=== PATIENT | male | born 1950 | race Caucasian/White ===

== ENCOUNTER → 2017-01-28 | Outpatient (CLI) | payer OTHER, MEDICAID | LOC: FIMAGING 16:00 | PROVIDERS: ATTEND Family Medicine | DX: J18.9 Pneumonia, unspecified organism (principal) ==

== ENCOUNTER 2017-02-16 22:40 | Inpatient (IN) | payer OTHER, MEDICAID ==
[2017-02-16] MEDS ORDERED: NS 500 ML IV ONE (22:45)
[2017-02-16] MEDS ORDERED: IPRATROPIUM/ALBUTEROL 3 ML DEYVIAL IH ONE (22:46)
--- NOTE | 2017-02-16 22:49 | EDPHY ---
H & P HPI/ROS: HPI CHIEF COMPLAINT: Seizure, generalized tonic-clonic 5 minutes HISTORY OF PRESENT ILLNESS: This patient is 66-year-old male significant past medical history for down syndrome, seizure disorder, presents emergency room by EMS after he had a witnessed generalized tonic-clonic seizure in his chair at home. He has a caregiver who witnessed the seizure. The patient does have a history of seizure disorder and take seizure medications according to EMS there has been changes in his seizure medication however they were unsure exactly what changed to one of his medications. His caregiver is able to give this information but is not here yet. Patient arrives is alert and oriented x3, answering questions appropriately he denies pain anywhere. EMS reports that he was postictal when they evaluated him and he had an O2 sat of 76% the placed on a non-rebreather and brought him here to the emergency room. Upon arrival here the patient has a cough and has upper airway secretions with a room air saturation of 85%. Past Medical History: Seizure disorder, down syndrome, thyroid disease Past Surgical History: No recent surgical history Social History: Denies daily use drugs alcohol tobacco products Family History: Noncontributory ROS REVIEW OF SYSTEMS: A comprehensive 10 point review of systems is otherwise negative aside from elements mentioned in the history of present illness. Exam Constitutional appears well nontoxic triage nursing summary reviewed, vital signs reviewed, awake/alert. (85%RA sat) Eyes normal conjunctivae and sclera, EOMI, PERRLA. HENT normal inspection, atraumatic, moist mucus membranes, no epistaxis, neck supple/ no meningismus, no raccoon eyes. Respiratory rhonchi in the upper airway and upper lung bernal Cardiovascular rate normal, regular rhythm, no murmur, no edema, distal pulses normal. Gastrointestinal soft, non-tender, no rebound, no guarding, normal bowel sounds, no distension, no pulsatile mass. Genitourinary no CVA tenderness. Musculoskeletal no midline vertebral tenderness, full range of motion, no calf swelling, no tenderness of extremities, no meningismus, good pulses, neurovascularly intact. Skin pink, warm, & dry, no rash, skin atraumatic. Neurologic awake, alert and oriented x 3, AAOx3, moves all 4 extremities equally, motor intact, sensory intact, CN II-XII intact, normal cerebellar, normal vision, normal speech. Psychiatric normal mood/affect. Heme/Lymph/Immune no lymphadenopathy. Differential Diagnosis: Includes but is not limited to in a particular order, breakthrough seizure, electrolyte disturbance, infection, pneumonia, aspiration from seizure, medication change leading to breakthrough seizure Medical Decision Making: Plan for this patient full regional director, IV establishment, blood draw, EKG, gentle IV hydration chest x-ray two view to rule out aspiration or recent pneumonia. Re-evaluation: 2315: At this time the caregiver has shown up and additional history is given. The caregiver tells me that he thinks he may have had a seizure was seated at the kitchen table and had a brief episode of unresponsiveness with staring off into space and some hand jerking. It is reported by the caregiver that he was not confused afterwards there was no postictal state. The caregiver thinks he may have passed out. He also reports that he has been dealing with bronchitis for 2 weeks and shortness of breath labored breathing at home. It was reported by EMS that he had a recent seizure medication change however the caregiver tells me that there has been no change in his medications. Also reports that there was no postictal state. EKG interpretation by me on record in [employer] system. Impression time of EKG 2308: This is sinus rhythm rate of 60, I do not appreciate acute ischemic changes on his EKG. And 1 I compare his EKG to old EKG dated 06/22/2009 is similar morphology. ED x-ray chest: Cardiomegaly present. Significant amount of pulmonary edema with bat winning appearance. 1222: At this time I did go and see the patient he still has mild labored breathing and rhonchi throughout all lung bernal. His workup here in the emergency room shows a positive troponin shows an elevated BNP shows an x-ray that is concerning for decompensated heart failure with cardiomegaly bilateral pulmonary edema. I have ordered this patient 40 mg IV Lasix, full-dose aspirin , he does not have chest pain. He is on a breathing treatment at this time. He is stable. He does have labored breathing. He will need to be admitted to PCU for decompensated heart failure. His CT angiogram at this time is pending for PE. This will also help us visualize his lung bernal as this could also be pneumonia with elevated white blood cell count however he does not have an elevated lactic acid. He did receive initially 500 cc of fluid normal saline when he arrived they have stopped all this fluid at this time. I spoke with Dr. Johnson the hospitalist who agrees to admit this patient. 1256AM: This patient's CT angiogram shows no pulmonary embolism however does show a dense right pneumonia. Blood cultures have been ordered. IV Rocephin azithromycin has been ordered. Source: Patient, EMS - Personal History Tetanus Vaccine Date: <10 years - Medical/Surgical History Other PMH: Down syndrome, hypothyroid - Social History Smoking Status: Never smoked Constitutional: Initial Vital Signs O2 Sat (%) 94 02/16/17 22:45 O2 Delivery Mode Oxymizer O2 (L/minute) 4 Allergies/Adverse Reactions: carbamazepine [From Tegretol] Allergy (Verified 02/16/17 22:59) NONFORM Allergy (Uncoded 08/28/12 09:55) OIL BASED PAINTS Allergy (Uncoded 08/28/12 09:55) Home Medications: Medication Instructions Recorded Flonase Nasal [place] 11/19/15 Ibuprofen [Motrin (*)] 600 mg PO Q8 #20 tab 11/19/15 Lamictal 11/19/15 Metamucil 11/19/15 Multivit with Calcium,Iron,Min 11/19/15 [place]-3 11/19/15 Prilosec 11/19/15 Stelazine 2MG (RX) 11/19/15 Synthroid 11/19/15 Wellbutrin 100mg (RX) 11/19/15 Medical Decision Making - Diagnostics Imaging Results: Imaging Impressions Chest X-Ray 02/16/17 22:45 Impression: Abnormalities as detailed above, congestive heart failure with possible associated pneumonia not excluded. Chest/Thorax CTA 02/16/17 23:32 Impression: 1. No evidence of pulmonary embolic disease. 2. Dense right lower lobe pulmonary consolidation is presumably pneumonia. Follow-up is recommended to assure resolution. 3. See above report for additional findings. Results called and discussed with Jose C Solorzano MD on 02/17/2017 at 0:40 - Data Points Laboratory Results: Laboratory Results 02/16/17 22:50 02/16/17 22:30 02/16/17 02/16/17 02/16/17 23:55 22:50 22:50 WBC 10.25 10^3/uL H 10^3/uL (3.80-9.50) RBC 3.45 10^6/uL L 10^6/uL (4.40-6.38) Hgb 11.8 g/dL L g/dL (13.7-17.5) Hct 35.0 % L % (40.0-51.0) MCV 101.4 fL H fL (81.5-99.8) MCH 34.2 pg H pg (27.9-34.1) MCHC 33.7 g/dL g/dL (32.4-36.7) RDW 14.9 % % (11.5-15.2) Plt Count 357 10^3/uL 10^3/uL (150-400) MPV 10.4 fL fL (8.7-11.7) Neut % (Auto) 74.5 % H % (39.3-74.2) Lymph % (Auto) 13.8 % L % (15.0-45.0) [place] % (Auto) 10.5 % % (4.5-13.0) Eos % (Auto) 0.0 % L % (0.6-7.6) Baso % (Auto) 0.7 % % (0.3-1.7) Nucleat RBC Rel Count 0.2 % % (0.0-0.2) Absolute Neuts (auto) 7.64 10^3/uL H 10^3/uL (1.70-6.50) Absolute Lymphs (auto) 1.41 10^3/uL 10^3/uL (1.00-3.00) Absolute Monos (auto) 1.08 10^3/uL H 10^3/uL (0.30-0.80) Absolute Eos (auto) 0.00 10^3/uL L 10^3/uL (0.03-0.40) Absolute Basos (auto) 0.07 10^3/uL 10^3/uL (0.02-0.10) Absolute Nucleated RBC 0.02 10^3/uL H 10^3/uL (0-0.01) Immature Gran % 0.5 % % (0.0-1.1) Immature Gran # 0.05 10^3/uL 10^3/uL (0.00-0.10) VBG Lactic Acid 1.2 mmol/L mmol/L (0.7-2.1) Sodium Potassium Chloride Carbon Dioxide Anion Gap BUN Creatinine Estimated GFR Glucose Calcium Magnesium Total Bilirubin Conjugated Bilirubin Unconjugated Bilirubin AST ALT Alkaline Phosphatase Creatine Kinase CK-MB (CK-2) Fraction Troponin I NT-Pro-B Natriuret Pep Total Protein Albumin Lipase Lamotrigine Pending 02/16/17 02/16/17 22:30 22:30 WBC REJ RBC TNP Hgb TNP Hct TNP MCV TNP MCH TNP MCHC TNP RDW TNP Plt Count TNP MPV TNP Neut % (Auto) TNP Lymph % (Auto) TNP [place] % (Auto) TNP Eos % (Auto) TNP Baso % (Auto) TNP Nucleat RBC Rel Count TNP Absolute Neuts (auto) TNP Absolute Lymphs (auto) TNP Absolute Monos (auto) TNP Absolute Eos (auto) TNP Absolute Basos (auto) TNP Absolute Nucleated RBC TNP Immature Gran % TNP Immature Gran # TNP VBG Lactic Acid Sodium 135 mEq/L mEq/L (134-144) Potassium 4.9 mEq/L mEq/L (3.5-5.2) Chloride 97 mEq/L mEq/L (97-110) Carbon Dioxide 26 mEq/l mEq/l (22-31) Anion Gap 12 mEq/L mEq/L (8-16) BUN 14 mg/dL mg/dL (7-23) Creatinine 1.0 mg/dL mg/dL (0.7-1.3) Estimated GFR > 60 Glucose 121 mg/dL H mg/dL (70-100) Calcium 8.6 mg/dL mg/dL (8.5-10.4) Magnesium 2.3 mg/dL mg/dL (1.6-2.3) Total Bilirubin 0.6 mg/dL mg/dL (0.1-1.4) Conjugated Bilirubin 0.5 mg/dL mg/dL (0.0-0.5) Unconjugated Bilirubin 0.1 mg/dL mg/dL (0.0-1.1) AST 34 IU/L IU/L (17-59) ALT 25 IU/L IU/L (21-72) Alkaline Phosphatase 92 IU/L IU/L (38-126) Creatine Kinase 70 IU/L IU/L (0-224) CK-MB (CK-2) Fraction 0.96 ng/mL ng/mL (0-3.19) Troponin I 0.047 ng/mL H ng/mL (0-0.034) NT-Pro-B Natriuret Pep 761 pg/mL H pg/mL (0-125) Total Protein 7.2 g/dL g/dL (6.3-8.2) Albumin 3.4 g/dL L g/dL (3.5-5.0) Lipase 48.0 IU/L IU/L (23-300) Lamotrigine Medications Given: Discontinued Medications Albuterol/Ipratropium (Duoneb) 3 ml IH EDNOW ONE Stop: 02/16/17 22:47 Last Admin: 02/16/17 23:05 Dose: 3 ml Aspirin Buffered (Aspirin Ec) 325 mg PO EDNOW ONE Stop: 02/16/17 23:34 Last Admin: 02/16/17 23:45 Dose: 325 mg Furosemide (Lasix Injection) 40 mg IVP EDNOW ONE Stop: 02/16/17 23:33 Last Admin: 02/16/17 23:45 Dose: 40 mg Sodium Chloride (Ns) 500 mls @ 0 mls/hr IV ONCE ONE PRN Reason: As Directed Stop: 02/16/17 22:46 Last Admin: 02/16/17 23:06 Dose: 500 mls Azithromycin 500 mg/ Dextrose 255 mls @ 255 mls/hr IV EDNOW ONE PRN Reason: Protocol Stop: 02/17/17 00:37 Last Admin: 02/17/17 00:45 Dose: 255 mls Ceftriaxone Sodium/Dextrose (Rocephin 1 Gm (Premix)) 50 mls @ 100 mls/hr IV EDNOW ONE PRN Reason: Protocol Stop: 02/17/17 00:07 Last Admin: 02/17/17 00:34 Dose: 50 mls Departure - Departure Disposition: Home, Routine, Self-Care Clinical Impression: Hypoxia CHF (congestive heart failure) Qualifiers: Congestive heart failure type: unspecified congestive heart failure type Congestive heart failure chronicity: acute Qualified Code(s): I50.9 - Heart failure, unspecified Pneumonia Qualifiers: Pneumonia type: due to unspecified organism Laterality: right Lung location: lower lobe of lung Qualified Code(s): J18.1 - Lobar pneumonia, unspecified organism Condition: Serious
[2017-02-16 22:58] LABS: % IMMATURE GRANULYOCYTES 0.5 % (0.0-1.1); ABSOLUTE IMMATURE GRANULOCYTES 0.05 10^3/uL (0.00-0.10); ABSOLUTE NRBC COUNT 0.02 10^3/uL (0-0.01); ADD DIFF? NO; ADD MORPH? NO; ADD SCAN? NO; ATYPICAL LYMPHOCYTE FLAG 50 (0-99); FRAGMENT RBC FLAG 0 (0-99); HEMOGLOBIN 11.8 g/dL (13.7-17.5); LEFT SHIFT FLG 10 (0-99); LIPEMIA HEMOLYSIS FLAG 80 (0-99); MEAN CELL HEMOGLOBIN 34.2 pg (27.9-34.1); MEAN CELL HEMOGLOBIN CONCENTR. 33.7 g/dL (32.4-36.7); MEAN CELL VOLUME 101.4 fL (81.5-99.8); MEAN PLATELET VOLUME 10.4 fL (8.7-11.7); NRBC-AUTO% 0.2 % (0.0-0.2); PLATELET CLUMPS FLAG 0 (0-99); PLATELET COUNT 357 10^3/uL (150-400); RED BLOOD CELL COUNT 3.45 10^6/uL (4.40-6.38); RED CELL DISTRIBUTION WIDTH 14.9 % (11.5-15.2)
[2017-02-16 23:05] LABS: ALANINE AMINOTRANSFERASE 25 IU/L (21-72); ALBUMIN 3.4 g/dL (3.5-5.0); ALKALINE PHOSPHATASE 92 IU/L (38-126); ANION GAP 12 mEq/L (8-16); ASPARTATE AMINOTRANSFERASE 34 IU/L (17-59); BILIRUBIN,TOTAL 0.6 mg/dL (0.1-1.4); BILIRUBIN-CONJUGATED 0.5 mg/dL (0.0-0.5); BILIRUBIN-UNCONJUGATED 0.1 mg/dL (0.0-1.1); CALCIUM 8.6 mg/dL (8.5-10.4); CARBON DIOXIDE 26 mEq/l (22-31); CHLORIDE 97 mEq/L (97-110); GLOMERULAR FILTRATION RATE > 60; GLUCOSE 121 mg/dL (70-100); MAGNESIUM 2.3 mg/dL (1.6-2.3); POTASSIUM 4.9 mEq/L (3.5-5.2); SODIUM 135 mEq/L (134-144); TOTAL PROTEIN 7.2 g/dL (6.3-8.2)
[2017-02-16 23:15] LABS: CREATINE KINASE-MB FRACTION 0.96 ng/mL (0-3.19); TROPONIN I 0.047 ng/mL (0-0.034)
[2017-02-16] MEDS ORDERED: FUROSEMIDE 40 MG/4 ML VIAL IVP ONE (23:32)
[2017-02-16] MEDS ORDERED: ASPIRIN EC 325 MG TAB PO ONE (23:33)
[2017-02-16] MEDS ORDERED: IOPAMIDOL (ISOVUE 370) 100 ML BTL IV ONE (23:38)
[2017-02-16] MEDS ORDERED: AZITHROMYCIN IV 500 MG in D5W 250 ML IV ONE (23:38)
--- NOTE | 2017-02-17 00:17 | CPEKG ---
Heart Rate: 60 RR Interval: 1000 P-R Interval: 184 QRSD Interval: 84 QT Interval: 404 QTC Interval: 404 P [place]: -8 QRS [place]: 29 T Wave [place]: 33 EKG Severity - BORDERLINE ECG - EKG Impression: SINUS RHYTHM EKG Impression: BORDERLINE INFERIOR Q WAVES EKG Impression: BORDERLINE T ABNORMALITIES, ANTERIOR LEADS Electronically Signed By: Jose C Solorzano 17-Feb-2017 07:05:26
[2017-02-17] MEDS ORDERED: ONDANSETRON 4 MG/2 ML VIAL IVP PRN (00:55)
[2017-02-17] MEDS ORDERED: LORazepam 2 MG/ML INJ IVP PRN (00:55)
[2017-02-17] MEDS ORDERED: ACETAMINOPHEN 325 MG TAB PO PRN (00:55)
[2017-02-17] MEDS ORDERED: ALBUTEROL 3 ML DEYVIAL IH PRN (00:55)
[2017-02-17] MEDS ORDERED: ONDANSETRON DISINTEGRATING 4 MG TAB PO PRN (00:55)
[2017-02-17] MEDS ORDERED: HYDROCODONE/APAP 5/325 TAB PO PRN (00:55)
--- NOTE | 2017-02-17 01:04 | PDGENHP ---
History and Physical - Chief Complaint unresponsive episode, hypoxia - History of Present Illness Patient is a 66 year old male with down syndrome, seizure disorder, GERD, hypothyroidism, DIANA who presents to the ED after an unresponsive episode at home. About 3 weeks ago, patient developed upper respiratory symptoms, with cough, chest congestion, mild dyspnea. He was evaluated by his PMD at that time and was determined to have an acute bronchitis, was given a 5-day course of antibiotics. His symptoms initially improved, however, never resolved completely and over the past several days his cough again began to worsen, become productive of thick sputum and associated with significant shortness of breath. This evening, while sitting down for dinner (had not yet started eating ) he had heavy breathing and then became unresponsive for a short period of time (< 1 min). The unresponsiveness was associated with slight facial twitching ; he did not fall out of his chair and regained consciousness. However, his breathing continued to appear labored. This episode was witnessed by his caregiver, who then immediately called EMS. Patient denies any chest pain, palpitations during this time, just cough and shortness of breath. On arrival to the ED, patient was afebrile and hemodynamically stable, but hypoxic on room air. CXR was obtained and revealed basilar opacities. Labs were significant for mild leukocytosis, indeterminately elevated troponin, mildly elevated BNP. CT chest was then obtained to rule out pulmonary embolism, was negative for PE, but did show a dense RLL infiltrate consistent with pneumonia. Patient was then cultured, initiated on antibiotics and admitted for further management. History Information - Allergies/Home Medication List Allergies/Adverse Reactions: carbamazepine [From Tegretol] Allergy (Verified 02/16/17 22:59) NONFORM Allergy (Uncoded 08/28/12 09:55) OIL BASED PAINTS Allergy (Uncoded 08/28/12 09:55) Home Medications: Flonase Nasal [place] 11/19/15 [Last Taken Unknown] Lamictal 11/19/15 [Last Taken Unknown] Metamucil 11/19/15 [Last Taken Unknown] Multivit with Calcium,Iron,Min 11/19/15 [Last Taken Unknown] [place]-3 11/19/15 [Last Taken Unknown] Prilosec 11/19/15 [Last Taken Unknown] Stelazine 2MG (RX) 11/19/15 [Last Taken Unknown] Synthroid 11/19/15 [Last Taken Unknown] Wellbutrin 100mg (RX) 11/19/15 [Last Taken Unknown] I have personally reviewed and updated: family history, medical history, social history, surgical history - Past Medical History Additional medical history: Down syndrome. GERD. DIANA on CPAP at night. seizure disorder, last witnessed seizure was > 8 years ago. hypothyroidism - Surgical History Reports: no pertinent surgical hx - Family History Positive for: non-pertinent - Social History Smoking Status: Never smoked Alcohol Use: None Drug Use: None Additional social history: Lives with a 24/7 caregiver. Review of Systems ROS: 10pt was reviewed & negative except for what was stated in HPI & below Physical Exam Temp Pulse Resp BP Pulse Ox 37 C 61 20 118/64 97 02/16/17 22:58 02/17/17 00:00 02/17/17 00:00 02/17/17 00:00 02/17/17 00:00 Constitutional: no apparent distress, appears nourished, not in pain Eyes: PERRL, anicteric sclera, EOMI Ears, Nose, Mouth, Throat: moist mucous membranes, hearing normal, ears appear normal, no oral mucosal ulcers Cardiovascular: regular rate and rhythym, no murmur, rub, or gallop, pulses symmetric bilaterally, No JVD, No edema Peripheral Pulses: 2+: dorsalis-pedis (R), dorsalis-pedis (L) Respiratory: no respiratory distress, inspiratory crackles, rhonchi (at R lung base) Gastrointestinal: normoactive bowel sounds, soft, non-tender abdomen, no palpable masses, No tenderness, No guarding, No rebound Genitourinary: no bladder fullness, no bladder tenderness Skin: warm, normal color, no rashes or abrasions, no fluctuance, no induration, No mottled Musculoskeletal: full muscle strength, no muscle tenderness, normal joint ROM, no joint effusions Neurologic: AAOx3, sensation intact bilaterally, CN II-XII Intact, No weakness, No numbness Psychiatric: interacting appropriately, not anxious, not encephalopathic, thought process linear Lab Data & Imaging Review 02/17/17 05:10 02/17/17 05:10 WBC 10.25 10^3/uL (3.80-9.50) H 02/16/17 22:50 RBC 3.45 10^6/uL (4.40-6.38) L 02/16/17 22:50 Hgb 11.8 g/dL (13.7-17.5) L 02/16/17 22:50 Hct 35.0 % (40.0-51.0) L 02/16/17 22:50 MCV 101.4 fL (81.5-99.8) H 02/16/17 22:50 MCH 34.2 pg (27.9-34.1) H 02/16/17 22:50 MCHC 33.7 g/dL (32.4-36.7) 02/16/17 22:50 RDW 14.9 % (11.5-15.2) 02/16/17 22:50 Plt Count 357 10^3/uL (150-400) 02/16/17 22:50 MPV 10.4 fL (8.7-11.7) 02/16/17 22:50 Neut % (Auto) 74.5 % (39.3-74.2) H 02/16/17 22:50 Lymph % (Auto) 13.8 % (15.0-45.0) L 02/16/17 22:50 [place] % (Auto) 10.5 % (4.5-13.0) 02/16/17 22:50 Eos % (Auto) 0.0 % (0.6-7.6) L 02/16/17 22:50 Baso % (Auto) 0.7 % (0.3-1.7) 02/16/17 22:50 Nucleat RBC Rel Count 0.2 % (0.0-0.2) 02/16/17 22:50 Absolute Neuts (auto) 7.64 10^3/uL (1.70-6.50) H 02/16/17 22:50 Absolute Lymphs (auto) 1.41 10^3/uL (1.00-3.00) 02/16/17 22:50 Absolute Monos (auto) 1.08 10^3/uL (0.30-0.80) H 02/16/17 22:50 Absolute Eos (auto) 0.00 10^3/uL (0.03-0.40) L 02/16/17 22:50 Absolute Basos (auto) 0.07 10^3/uL (0.02-0.10) 02/16/17 22:50 Absolute Nucleated RBC 0.02 10^3/uL (0-0.01) H 02/16/17 22:50 Immature Gran % 0.5 % (0.0-1.1) 02/16/17 22:50 Immature Gran # 0.05 10^3/uL (0.00-0.10) 02/16/17 22:50 VBG Lactic Acid 1.2 mmol/L (0.7-2.1) 02/16/17 22:50 Sodium 135 mEq/L (134-144) 02/16/17 22:30 Potassium 4.9 mEq/L (3.5-5.2) 02/16/17 22:30 Chloride 97 mEq/L (97-110) 02/16/17 22:30 Carbon Dioxide 26 mEq/l (22-31) 02/16/17 22:30 Anion Gap 12 mEq/L (8-16) 02/16/17 22:30 BUN 14 mg/dL (7-23) 02/16/17 22:30 Creatinine 1.0 mg/dL (0.7-1.3) 02/16/17 22:30 Estimated GFR > 60 02/16/17 22:30 Glucose 121 mg/dL (70-100) H 02/16/17 22:30 Calcium 8.6 mg/dL (8.5-10.4) 02/16/17 22:30 Magnesium 2.3 mg/dL (1.6-2.3) 02/16/17 22:30 Total Bilirubin 0.6 mg/dL (0.1-1.4) 02/16/17 22:30 Conjugated Bilirubin 0.5 mg/dL (0.0-0.5) 02/16/17 22:30 Unconjugated Bilirubin 0.1 mg/dL (0.0-1.1) 02/16/17 22:30 AST 34 IU/L (17-59) 02/16/17 22:30 ALT 25 IU/L (21-72) 02/16/17 22:30 Alkaline Phosphatase 92 IU/L (38-126) 02/16/17 22:30 Creatine Kinase 70 IU/L (0-224) 02/16/17 22:30 CK-MB (CK-2) Fraction 0.96 ng/mL (0-3.19) 02/16/17 22:30 Troponin I 0.047 ng/mL (0-0.034) H 02/16/17 22:30 NT-Pro-B Natriuret Pep 761 pg/mL (0-125) H 02/16/17 22:30 Total Protein 7.2 g/dL (6.3-8.2) 02/16/17 22:30 Albumin 3.4 g/dL (3.5-5.0) L 02/16/17 22:30 Lipase 48.0 IU/L (23-300) 02/16/17 22:30 Visualized and Interpreted Chest x-ray results: Yes Chest X-Ray results: infiltrate (basilar) Visualized and Interpreted imaging results: Yes Interpretation: CT angio chest: no pulmonary embolism, dense R lower lung infiltrate Visualized and Interpreted EKG results: Yes EKG Interpretation: Positive for: normal sinsus rhythm (no st/t wave changes) Assessment & Plan Assessment: Patient is a 66 year old male with Down syndrome, GERD, hypothyroidism, Seizure disorder and DIANA who presents to the ED with respiratory distress and an unresponsive episode. Plan: # acute hypoxic respiratory failure On initial arrival, thought respiratory distress was due to chf/fluid overload given elevated BNP/indeterminant troponin. However, once CT chest was obtained, it revealed a dense RLL consolidation, consistent with acute pneumonia. Patient does not meet SIRS/sepsis criteria on admission, with just mild leukocytosis present. Lactic acid is also negative. 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 Will also check TTE, continue to trend troponins, EKGs to rule out cardiac etiology. - f/u blood cultures, obtain sputum culture - cont ertapenem, azithromycin - supplemental O2, nebs prn - f/u cardiac work up # syncopal episode Caregiver's description of the description of the event does not sound consistent with a seizure, more like a syncopal event. May have been precipitated by hypoxia/respiratory distress. Seizure threshold may have been lowered by acute infection. Lamictal level is pending, will continue home medicine, place on seizure precautions. WIll also consult neurology. # indeterminant troponin, elevated BNP No known cardiac history, denies chest pain, palpitations. EKG is nonischemic. Will check TTE, trend troponin and follow EKGs. # Down syndrome Stable, will resume home meds. # dispo: admit to inpatient service for > 2 [place] stay # gen: regular diet DVT ppx: lovenox Full code
[2017-02-17] MEDS: lamoTRIgine 100 MG TAB PO SCH ×3 (01:36→20:52)
[2017-02-17] MEDS: TRIFLUOPERAZINE HCL 1 MG TAB PO SCH ×3 (01:37→21:22)
[2017-02-17 02:00] LABS: COLOR PALE YELLOW; LEUKOCYTE ESTERASE,URINE NEGATIVE (NEGATIVE); NITRITE,URINE NEGATIVE (NEGATIVE)
[2017-02-17 05:23] LABS: % IMMATURE GRANULYOCYTES 0.5 % (0.0-1.1); ABSOLUTE IMMATURE GRANULOCYTES 0.05 10^3/uL (0.00-0.10); ADD DIFF? NO; ADD MORPH? NO; ADD SCAN? NO; ATYPICAL LYMPHOCYTE FLAG 0 (0-99); FRAGMENT RBC FLAG 0 (0-99); HEMATOCRIT 32.9 % (40.0-51.0); HEMOGLOBIN 11.2 g/dL (13.7-17.5); LEFT SHIFT FLG 10 (0-99); LIPEMIA HEMOLYSIS FLAG 90 (0-99); MEAN CELL HEMOGLOBIN 33.6 pg (27.9-34.1); MEAN CELL VOLUME 98.8 fL (81.5-99.8); MEAN PLATELET VOLUME 10.1 fL (8.7-11.7); PLATELET CLUMPS FLAG 0 (0-99); PLATELET COUNT 378 10^3/uL (150-400); RED BLOOD CELL COUNT 3.33 10^6/uL (4.40-6.38); RED CELL DISTRIBUTION WIDTH 14.4 % (11.5-15.2)
[2017-02-17 05:33] LABS: APTT 31.5 SEC (23.0-38.0); INR 1.17 (0.83-1.16); PROTIME(PATIENT) 14.9 SEC (12.0-15.0)
[2017-02-17 05:45] LABS: ANION GAP 7 mEq/L (8-16); CALCIUM 8.2 mg/dL (8.5-10.4); CARBON DIOXIDE 28 mEq/l (22-31); CHLORIDE 96 mEq/L (97-110); GLOMERULAR FILTRATION RATE > 60; GLUCOSE 118 mg/dL (70-100); MAGNESIUM 2.2 mg/dL (1.6-2.3); POTASSIUM 4.5 mEq/L (3.5-5.2); SODIUM 131 mEq/L (134-144)
[2017-02-17 05:50] LABS: TROPONIN I 0.051 ng/mL (0-0.034)
[2017-02-17] MEDS: ENOXAPARIN 40 MG/0.4 ML SYR SC SCH (09:27)
[2017-02-17] MEDS: AZITHROMYCIN IV 500 MG in D5W 250 ML IV SCH (09:28)
[2017-02-17] MEDS: ERTAPENEM 1 GM in NS 100 ML IV SCH (09:28)
--- NOTE | 2017-02-17 12:42 | ECHO ---
[id number] + + [address] : : [place] [id number] : : [phone] + + Adult Echocardiographic Report + ----+ :Name: CHARISSE OLIVA BStudy Date: 02/17/2017 10:48 AM : : Hospital Admission Number: [id number] Location: 206: :: 1950 Gender: Male Height: 60 in : :Age: 66 yrs Race: WH Weight: 160 lb : :Reason For Study: Eval LV FX : : BSA: 1.7 meters2 : :History: Cough, SOB : + ----+ MMode/2D Measurements \T\ Calculations IVSd: 1.1 cm LVIDd: 4.1 cm FS: 35.6 % Ao root diam: 2.6 cm LVPWd: 1.1 cm LVIDs: 2.6 cm EDV(Teich): 74.9 ml ACS: 1.8 cm ESV(Teich): 25.8 ml EF(Teich): 65.6 % Normal Measurement Values: + + :LVIDd (3.5-5.7cm) IVSd (0.6-1.1cm) LVPWd (0.6-1.1cm) Aortic Root (2.0-3.7cm)Left Atrium (1.5-4.0cm): :LV Vol(d) (76-115ml) LV Vol(s) (29-48ml) Ejec Fraction (50-65%)PV Andrew (0.6- 1.2m/s) TV Andrew (0.4-1.0m/s) : :MV E Andrew (0.8-1.0m/s)MV A Andrew (0.3-1.0m/s)LVOT Andrew (0.7-1.2m/s) Asc Ao Andrew ( 0.9-1.8m/s) : + + Doppler Measurements \T\ Calculations MV E max andrew: Ao V2 max: LV V1 max: PA V2 max: 76.0 cm/sec 126.2 cm/sec 74.0 cm/sec 120.8 cm/sec MV A max andrew: Ao max PG: LV V1 max PG: PA max P.2 cm/sec 6.4 mmHg 2.2 mmHg 5.8 mmHg MV E/A: 0.75 TR max andrew: 291.8 cm/sec TR max P.1 mmHg RAP systole: 5.0 mmHg RVSP(TR): 39.1 mmHg Left Ventricle The left ventricle is normal in size. There is normal left ventricular wall thickness. The left ventricular ejection fraction is normal. Ejection Fraction = 65%. There is Doppler evidence for diastolic dysfunction. The left ventricular wall motion is normal. Right Ventricle Borderline right ventricular enlargement. The right ventricular systolic function is normal. Atria The left atrial size is normal. Right atrial size is normal. Mitral Valve The mitral valve is normal in structure and function. There is no mitral regurgitation noted. Tricuspid Valve There is trace to mild tricuspid regurgitation. Right ventricular systolic pressure is 40mmHg. There is Doppler evidence for mild pulmonary hypertension. Aortic Valve The aortic valve is normal in structure and function. The aortic valve is trileaflet. There is no aortic stenosis. Trace to mild aortic regurgitation. Pulmonic Valve The pulmonic valve is normal in structure and function. Trace pulmonic valvular regurgitation. Great Vessels The aortic root is normal size. Pericardium/Pleural There is no pericardial effusion. Conclusion A complete two-dimensional transthoracic echocardiogram was performed (2D, M-mode, Doppler and color flow Doppler). The left ventricular ejection fraction is normal. Ejection Fraction = 65%. The left ventricular wall motion is normal. There is Doppler evidence for diastolic dysfunction. Borderline right ventricular enlargement. The right ventricular systolic function is normal. Normal appearing valvular structures. Trace to mild aortic regurgitation. There is trace to mild tricuspid regurgitation. There is Doppler evidence for mild pulmonary hypertension. Right ventricular systolic pressure is 40mmHg. Trace pulmonic valvular regurgitation. Final Reading Physician: Hamlet Roldan signed on 02/17/2017 12:40 PM Ordering Physician: Pat Johnson Performed By: Yovanny Chilel, ANALYCS
--- NOTE | 2017-02-17 13:53 | HOSPPROG ---
Hospitalist Progress Note Assessment/Plan: # acute hypoxic respiratory failure-2/2 community-acquired pneumonia- oxygen saturation 75% on room air chest CT( personally reviewed and interpreted) dense right lower lobe pneumonia no PE - continue IV antibiotics - continue inhaled treatment - encourage IS # community-acquired pneumonia- blood cultures from emergency department pending- WBC 10.5 - continue IV ertapenem and azithromycin ( covering for aspiration until seen by speech) - speech therapy eval ordered # indeterminate troponin- very suspicious secondary to acute illness- no active chest pain complaints - continue to monitor # seizure disorder- continue home meds # diet regular # prophylaxis Lovenox # disposition greater than 2 midnights of patient presenting with severe community-acquired pneumonia with dense right infiltrate I have discussed the case with the RN will continue aggressive pulmonary toilet and supportive care Subjective: short of breath Objective: Vital Signs Temp Pulse Resp BP Pulse Ox 36.8 C 66 16 106/62 75 L 02/17/17 11:49 02/17/17 11:49 02/17/17 11:49 02/17/17 11:49 02/17/17 13:37 Laboratory Results 02/17/17 05:10 02/17/17 05:10 02/16/17 02/17/17 02/18/17 05:59 05:59 05:59 Intake Total 500 Output Total 850 375 Balance -350 -375 PT 14.9 SEC (12.0-15.0) 02/17/17 05:10 INR 1.17 (0.83-1.16) H 02/17/17 05:10 - Physical Exam Constitutional: chronically ill appearing Eyes: anicteric sclera Ears, Nose, Mouth, Throat: dry mucous membranes Cardiovascular: regular rate and rhythym Respiratory: expiratory wheeze, inspiratory crackles Gastrointestinal: normoactive bowel sounds Genitourinary: no bladder fullness Skin: warm, normal color Musculoskeletal: No asymmetric calves Neurologic: No asterixes, No facial droop Psychiatric: interacting appropriately Lymph, Heme, Immunologic: no cervical LAD ICD10 Worksheet Patient Problems: Problems Problem Status Onset CHF (congestive heart failure) Acute Hypoxia Acute Pneumonia Acute
[2017-02-17] MEDS: guaiFENesin 600 MG TAB.ER PO SCH ×2 (14:40→20:52)
[2017-02-17] MEDS ORDERED: ECONAZOLE 1% CREAM TP PRN (15:09)
[2017-02-17] MEDS: IPRATROPIUM/ALBUTEROL 3 ML DEYVIAL IH SCH ×2 (17:04→22:00)
[2017-02-17] MEDS: IBUPROFEN 600 MG TAB PO SCH (20:51)
[2017-02-17] MEDS: FLUTICASONE NASAL 120 SPRAYS/16 GM MDI EACHNARE SCH (21:07)
[2017-02-17] MEDS: FLUTICASONE HFA 110 MCG MDI IH SCH (21:59)
[2017-02-18 03:59] LABS: HEMATOCRIT 34.8 % (40.0-51.0); HEMOGLOBIN 11.4 g/dL (13.7-17.5); MEAN CELL HEMOGLOBIN 33.4 pg (27.9-34.1); MEAN CELL HEMOGLOBIN CONCENTR. 32.8 g/dL (32.4-36.7); MEAN CELL VOLUME 102.1 fL (81.5-99.8); RED BLOOD CELL COUNT 3.41 10^6/uL (4.40-6.38); RED CELL DISTRIBUTION WIDTH 14.8 % (11.5-15.2)
[2017-02-18 04:10] LABS: ANION GAP 7 mEq/L (8-16); CALCIUM 8.2 mg/dL (8.5-10.4); CARBON DIOXIDE 28 mEq/l (22-31); CHLORIDE 102 mEq/L (97-110); GLOMERULAR FILTRATION RATE > 60; GLUCOSE 114 mg/dL (70-100); POTASSIUM 4.5 mEq/L (3.5-5.2); SODIUM 137 mEq/L (134-144)
[2017-02-18] MEDS: IPRATROPIUM/ALBUTEROL 3 ML DEYVIAL IH SCH ×4 (06:00→21:16)
[2017-02-18] MEDS ORDERED: NON-FORMULARY NEW DRUG (Omeprazole [Omeprazole] 40 MG) PO SCH (07:30)
[2017-02-18] MEDS: FLUTICASONE HFA 110 MCG MDI IH SCH ×3 (08:10→21:17)
[2017-02-18] MEDS ORDERED: Herbals/Supplements -Info Only PO SCH (09:00)
[2017-02-18] MEDS: AZITHROMYCIN IV 500 MG in D5W 250 ML IV SCH (11:19)
[2017-02-18] MEDS: ENOXAPARIN 40 MG/0.4 ML SYR SC SCH (11:19)
[2017-02-18] MEDS: guaiFENesin 600 MG TAB.ER PO SCH ×2 (11:20→20:17)
[2017-02-18] MEDS: ERTAPENEM 1 GM in NS 100 ML IV SCH (11:20)
[2017-02-18] MEDS: IBUPROFEN 600 MG TAB PO SCH ×3 (11:20→22:35)
[2017-02-18] MEDS: lamoTRIgine 100 MG TAB PO SCH ×2 (11:20→20:16)
[2017-02-18] MEDS: LEVOTHYROXINE 100 MCG TAB PO SCH (11:20)
[2017-02-18] MEDS: PANTOPRAZOLE SODIUM 40 MG TAB PO SCH (11:21)
[2017-02-18] MEDS: MULTIVITAMINS 1 EACH TAB PO SCH (11:21)
[2017-02-18] MEDS: PSYLLIUM METAMUCIL 1 PKT PO SCH (11:21)
--- NOTE | 2017-02-18 11:34 | GCON ---
[f rep st] CONSULTATION HISTORY: The patient is a 66-year-old gentleman whom I am asked to see in neurologic consultation r egarding an episode of possible seizure activity that occurred 2 nights ago. He said that he does n ot remember anything, but his caregiver knows him well. The patient has Down syndrome with some chr onic cognitive limitations as a result of that. He currently does complain of feeling a little bit dizzy. I spoke to his caregiver, Rusty, who explained that the patient has been dealing with the r esidual affects of pneumonia over the last few weeks and seemed to be getting a little more congeste d. Two evenings ago, he was at home and had an episode that the caregiver witnessed in which he was staring blankly for perhaps a minute. He did seem to be breathing and then had a few muscle twitch es. After this he started to come back around slowly and they called for emergency care and he came to the hospital for evaluation, where he has been admitted and monitored. The patient probably has had 3 seizures in his lifetime that the caregiver is aware of, and they think the last one was prob ably 8 years ago. He is on chronic treatment with lamotrigine. Other than his Down syndrome, with chronic cognitive slowing, he has not had any other specific neurologic issues. Again, the patient cannot really elaborate on many details, but is able to tell me that he simply feels a little bit di zzy, but otherwise doing fine. PAST MEDICAL HISTORY: Notable for the pneumonia as outlined above. FAMILY HISTORY: Not currently available. SOCIAL HISTORY: Not currently available, but he does live with his caregiver in his home in [facility]. PHYSICAL EXAMINATION: He is awake, oriented to his name but that is all, beyond knowing that he porfirio es in [place]. He is friendly and smiles and able to carry on a basic conversation. He is unable to g veronica details about the recent events. Pupils 3 mm and reactive. Extraocular movements intact. Norm al facial sensation and strength. Motor exam: Mild generalized weakness, but no focal weakness. IMPRESSION: The patient probably had a complex partial-type seizure event, likely precipitated by h is recent pneumonia, and is rapidly getting back toward his baseline. I do not find evidence of any other acute neurologic event. Today's visit was predominantly counseling regarding his condition with greater than 50% of the time in [id number] discussion and review of the case. Total unit time of 55 minutes. DISPOSITION: Once he is stabilized on his current doses of medicine, then he should be able to be d ischarged back to the caregiver. /[id number]/MODL
--- NOTE | 2017-02-18 11:37 | HOSPPROG ---
Hospitalist Progress Note Assessment/Plan: # acute hypoxic respiratory failure-2/2 community-acquired pneumonia- oxygen saturation 98% on 2L chest CTA- no PE - CXR ( personally reviewed and interpreted) right sided infiltrate - continue IV antibiotics - continue inhaled treatments - encourage IS # community-acquired pneumonia- [id number]-[id number]- WBC 10.5-> 6.3 this am - continue IV ceftriaxone and azithromycin - continue respiratory therapy # indeterminate troponin- very suspicious secondary to acute illness- no active chest pain complaints - continue to monitor- will recheck in am # seizure disorder- may have had an event prior to admit while acutely ill - dw Neurology continue home meds # hypothyroid - cont synthroid # diet regular # prophylaxis Lovenox # disposition greater than 2 midnights of patient presenting with severe community-acquired pneumonia with dense right infiltrate I have discussed the case with Neurology - event witnessed at home prior may have been seizure although likely provoked by PNA no med changes Subjective: still SOB but better Objective: Vital Signs Temp Pulse Resp BP Pulse Ox 36.6 C 66 16 121/67 H 98 02/18/17 11:28 02/18/17 11:28 02/18/17 11:28 02/18/17 11:28 02/18/17 11:28 Laboratory Results 02/18/17 03:24 02/18/17 03:24 02/17/17 02/18/17 02/19/17 05:59 05:59 05:59 Intake Total 500 1060 140 Output Total 850 1150 250 Balance -350 -90 -110 PT 14.9 SEC (12.0-15.0) 02/17/17 05:10 INR 1.17 (0.83-1.16) H 02/17/17 05:10 - Physical Exam Constitutional: appears nourished, chronically ill appearing Eyes: anicteric sclera Ears, Nose, Mouth, Throat: moist mucous membranes Cardiovascular: regular rate and rhythym Respiratory: no respiratory distress, inspiratory crackles, No expiratory wheeze Gastrointestinal: normoactive bowel sounds, soft, non-tender abdomen Genitourinary: no bladder fullness Skin: warm Musculoskeletal: No asymmetric calves Neurologic: AAOx3 Psychiatric: interacting appropriately Lymph, Heme, Immunologic: no cervical LAD ICD10 Worksheet Patient Problems: Problems Problem Status Onset CHF (congestive heart failure) Acute Hypoxia Acute Pneumonia Acute
[2017-02-18] MEDS: TRIFLUOPERAZINE HCL 1 MG TAB PO SCH (20:17)
[2017-02-18] MEDS: FLUTICASONE NASAL 120 SPRAYS/16 GM MDI EACHNARE SCH (22:36)
[2017-02-19 05:38] LABS: HEMATOCRIT 33.9 % (40.0-51.0); HEMOGLOBIN 11.1 g/dL (13.7-17.5); MEAN CELL HEMOGLOBIN 33.2 pg (27.9-34.1); MEAN CELL HEMOGLOBIN CONCENTR. 32.7 g/dL (32.4-36.7); MEAN CELL VOLUME 101.5 fL (81.5-99.8); RED BLOOD CELL COUNT 3.34 10^6/uL (4.40-6.38); RED CELL DISTRIBUTION WIDTH 14.8 % (11.5-15.2)
[2017-02-19 05:52] LABS: ANION GAP 5 mEq/L (8-16); CALCIUM 8.3 mg/dL (8.5-10.4); CARBON DIOXIDE 31 mEq/l (22-31); CHLORIDE 102 mEq/L (97-110); CREATININE 0.9 mg/dL (0.7-1.3); GLOMERULAR FILTRATION RATE > 60; GLUCOSE 95 mg/dL (70-100); POTASSIUM 4.7 mEq/L (3.5-5.2); SODIUM 138 mEq/L (134-144)
[2017-02-19] MEDS: IPRATROPIUM/ALBUTEROL 3 ML DEYVIAL IH SCH ×4 (06:03→21:29)
[2017-02-19 06:04] LABS: TROPONIN I 0.013 ng/mL (0-0.034)
[2017-02-19] MEDS: IBUPROFEN 600 MG TAB PO SCH ×3 (06:12→21:08)
[2017-02-19] MEDS: LEVOTHYROXINE 100 MCG TAB PO SCH (06:12)
[2017-02-19] MEDS: lamoTRIgine 100 MG TAB PO SCH ×2 (08:35→21:07)
[2017-02-19] MEDS: MULTIVITAMINS 1 EACH TAB PO SCH (08:35)
[2017-02-19] MEDS: guaiFENesin 600 MG TAB.ER PO SCH ×2 (08:35→21:06)
[2017-02-19] MEDS: PANTOPRAZOLE SODIUM 40 MG TAB PO SCH (08:35)
[2017-02-19] MEDS: ENOXAPARIN 40 MG/0.4 ML SYR SC SCH (08:36)
[2017-02-19] MEDS: PSYLLIUM METAMUCIL 1 PKT PO SCH (08:36)
[2017-02-19] MEDS: AZITHROMYCIN IV 500 MG in D5W 250 ML IV SCH (08:39)
--- NOTE | 2017-02-19 09:36 | HOSPPROG ---
Hospitalist Progress Note Assessment/Plan: # CAP, possible aspiration - cont rocephin and azith - check [employer] eval - CXR tomorrow am # acute hypoxic resp failure d/t CAP # seizure disorder - cont lamictal - neuro evaluated given possible sz in setting of acute illness - no change in meds # indet troponin - no CP; likely d/t acute illness; echo ok; outpatient f/u # hypothyroid - synthroid # ppx - lovenox Subjective: sitting in chair; complains of some coughing Objective: Vital Signs Temp Pulse Resp BP Pulse Ox 36.9 C 59 L 15 117/75 98 02/19/17 08:13 02/19/17 08:13 02/19/17 08:13 02/19/17 08:13 02/19/17 08:13 Laboratory Results 02/19/17 05:23 02/19/17 05:23 02/18/17 02/19/17 02/20/17 05:59 05:59 05:59 Intake Total 1060 740 Output Total 1150 665 Balance -90 75 PT 14.9 SEC (12.0-15.0) 02/17/17 05:10 INR 1.17 (0.83-1.16) H 02/17/17 05:[address] chest personally viewed and interpreted - Physical Exam Constitutional: no apparent distress, appears nourished Cardiovascular: regular rate and rhythym, no murmur, rub, or gallop, systolic murmur Respiratory: expiratory wheeze, bronchial breath sounds (R base), other ( tachypneic), No inspiratory crackles, No aegophony Gastrointestinal: normoactive bowel sounds, soft, non-tender abdomen, no palpable masses ICD10 Worksheet Patient Problems: Problems Problem Status Onset Chronic Disease Mgmt/Transitional Care Acute CHF (congestive heart failure) Acute Hypoxia Acute Pneumonia Acute
[2017-02-19] MEDS: FLUTICASONE HFA 110 MCG MDI IH SCH ×2 (11:03→21:52)
[2017-02-19] MEDS: TRIFLUOPERAZINE HCL 1 MG TAB PO SCH (21:06)
[2017-02-20] MEDS: FLUTICASONE NASAL 120 SPRAYS/16 GM MDI EACHNARE SCH ×2 (02:38→21:27)
[2017-02-20 04:32] LABS: % IMMATURE GRANULYOCYTES 0.4 % (0.0-1.1); ABSOLUTE IMMATURE GRANULOCYTES 0.02 10^3/uL (0.00-0.10); ADD DIFF? NO; ADD MORPH? NO; ADD SCAN? NO; ATYPICAL LYMPHOCYTE FLAG 30 (0-99); FRAGMENT RBC FLAG 0 (0-99); HEMATOCRIT 33.2 % (40.0-51.0); HEMOGLOBIN 10.8 g/dL (13.7-17.5); LEFT SHIFT FLG 0 (0-99); LIPEMIA HEMOLYSIS FLAG 80 (0-99); MEAN CELL HEMOGLOBIN CONCENTR. 32.5 g/dL (32.4-36.7); MEAN CELL VOLUME 101.5 fL (81.5-99.8); MEAN PLATELET VOLUME 11.4 fL (8.7-11.7); PLATELET CLUMPS FLAG 0 (0-99); PLATELET COUNT 418 10^3/uL (150-400); RED BLOOD CELL COUNT 3.27 10^6/uL (4.40-6.38); RED CELL DISTRIBUTION WIDTH 14.8 % (11.5-15.2)
[2017-02-20 05:01] LABS: ANION GAP 9 mEq/L (8-16); CALCIUM 8.1 mg/dL (8.5-10.4); CARBON DIOXIDE 29 mEq/l (22-31); CHLORIDE 101 mEq/L (97-110); CREATININE 1.1 mg/dL (0.7-1.3); GLOMERULAR FILTRATION RATE > 60; GLUCOSE 82 mg/dL (70-100); POTASSIUM 4.7 mEq/L (3.5-5.2); SODIUM 139 mEq/L (134-144)
[2017-02-20] MEDS: IBUPROFEN 600 MG TAB PO SCH ×3 (05:36→21:14)
[2017-02-20] MEDS: LEVOTHYROXINE 100 MCG TAB PO SCH (05:36)
[2017-02-20] MEDS: IPRATROPIUM/ALBUTEROL 3 ML DEYVIAL IH SCH ×3 (05:56→17:04)
[2017-02-20] MEDS: ENOXAPARIN 40 MG/0.4 ML SYR SC SCH (08:09)
[2017-02-20] MEDS: guaiFENesin 600 MG TAB.ER PO SCH ×2 (08:10→21:15)
[2017-02-20] MEDS: lamoTRIgine 100 MG TAB PO SCH ×2 (08:10→21:14)
[2017-02-20] MEDS: PANTOPRAZOLE SODIUM 40 MG TAB PO SCH (08:10)
[2017-02-20] MEDS: PSYLLIUM METAMUCIL 1 PKT PO SCH (08:11)
[2017-02-20] MEDS: MULTIVITAMINS 1 EACH TAB PO SCH (08:11)
[2017-02-20] MEDS: AZITHROMYCIN IV 500 MG in D5W 250 ML IV SCH (09:51)
[2017-02-20] MEDS: FLUTICASONE HFA 110 MCG MDI IH SCH ×2 (10:29→21:10)
--- NOTE | 2017-02-20 12:39 | HOSPPROG ---
Hospitalist Progress Note Assessment/Plan: # CAP, possible aspiration: worse today - change to invanz and azith to better cover aspiration - need DIRECTOR RADIO eval - CXR tomorrow, check resp PCR, legionella, strep urine ag - check echo given bilat appearance # reactive airways exacerbation: steroids + nebs # somnolence: check ABG # acute hypoxic resp failure d/t CAP # seizure disorder - cont lamictal - neuro evaluated given possible sz in setting of acute illness - no change in meds # indet troponin - no CP; likely d/t acute illness; echo ok; outpatient f/u # down's syndrome - home meds # hypothyroid - synthroid # ppx - lovenox # FCFT - will identify decision maker with CM and start to address if he continues to worsen Subjective: denies SOB or cough Objective: Vital Signs Temp Pulse Resp BP Pulse Ox 36.5 C 66 20 129/62 H 90 L 02/20/17 11:14 02/20/17 11:14 02/20/17 11:14 02/20/17 11:14 02/20/17 11:35 Laboratory Results 02/20/17 03:15 02/20/17 03:15 02/19/17 02/20/17 02/21/17 05:59 05:59 05:59 Intake Total 740 620 305 Output Total 665 1500 200 Balance 75 -880 105 PT 14.9 SEC (12.0-15.0) 02/17/17 05:10 INR 1.17 (0.83-1.16) H 02/17/17 05:10 CXR personally reviewed - worse today - Physical Exam Constitutional: no apparent distress, appears nourished Cardiovascular: regular rate and rhythym, systolic murmur, No irregularly irregular, No tachycardia, No bradycardia Respiratory: no respiratory distress, expiratory wheeze (R sided), inspiratory crackles (R sided), rhonchi (R sided) Gastrointestinal: normoactive bowel sounds, soft, non-tender abdomen, no palpable masses ICD10 Worksheet Patient Problems: Problems Problem Status Onset Chronic Disease Mgmt/Transitional Care Acute CHF (congestive heart failure) Acute Hypoxia Acute Pneumonia Acute
[2017-02-20] MEDS ORDERED: ERTAPENEM 1 GM in NS 100 ML IV SCH (13:00)
[2017-02-20] MEDS: predniSONE 20 MG TAB PO SCH (13:03)
[2017-02-20] MEDS: PIPERACILLIN/TAZO 4.5 GM/DEX 100 ML IV SCH (17:43)
[2017-02-20] MEDS: TRIFLUOPERAZINE HCL 1 MG TAB PO SCH (21:14)
[2017-02-21] MEDS: PIPERACILLIN/TAZO 4.5 GM/DEX 100 ML IV SCH ×5 (01:03→23:38)
[2017-02-21] MEDS: IBUPROFEN 600 MG TAB PO SCH ×3 (05:58→21:50)
[2017-02-21] MEDS: LEVOTHYROXINE 100 MCG TAB PO SCH (05:58)
[2017-02-21] MEDS: IPRATROPIUM/ALBUTEROL 3 ML DEYVIAL IH SCH ×5 (06:04→22:03)
[2017-02-21] MEDS: PSYLLIUM METAMUCIL 1 PKT PO SCH (07:41)
[2017-02-21] MEDS: PANTOPRAZOLE SODIUM 40 MG TAB PO SCH (08:42)
[2017-02-21] MEDS: guaiFENesin 600 MG TAB.ER PO SCH ×2 (08:42→21:53)
[2017-02-21] MEDS: predniSONE 20 MG TAB PO SCH (08:42)
[2017-02-21] MEDS: lamoTRIgine 100 MG TAB PO SCH ×2 (08:43→21:51)
[2017-02-21] MEDS: MULTIVITAMINS 1 EACH TAB PO SCH (08:43)
[2017-02-21] MEDS: AZITHROMYCIN IV 500 MG in D5W 250 ML IV SCH (08:44)
[2017-02-21] MEDS: ENOXAPARIN 40 MG/0.4 ML SYR SC SCH (08:49)
[2017-02-21] MEDS ORDERED: FUROSEMIDE 20 MG/2 ML VIAL IVP ONE (09:11)
--- NOTE | 2017-02-21 09:13 | HOSPPROG ---
Hospitalist Progress Note Assessment/Plan: # CAP: overall looks improved today - changed to azith/zosyn (from azith/rocephin) yesterday given his apparent decompensation - looks better today - legionella, strep urine ag pending; he has been unable to provide a sputum sample # reactive airways exacerbation: steroids added yesterday + nebs # acute hypoxic resp failure d/t CAP - will gently diurese today in addition to other treatments # seizure disorder - cont lamictal - neuro evaluated given possible sz in setting of acute illness - no change in meds # indet troponin - no CP; likely d/t acute illness; echo ok; outpatient f/u # down's syndrome - home meds # hypothyroid - synthroid # ppx - lovenox # FCFT - his brother is his guardian/decision maker Subjective: no complaints; sitting in chair Objective: Vital Signs Temp Pulse Resp BP Pulse Ox 36.4 C 51 L 18 110/57 L 92 02/21/17 07:27 02/21/17 07:27 02/21/17 07:27 02/21/17 07:27 02/21/17 07:27 Microbiology 02/20/17 13:43 Respiratory Panel (PCR) - Final Nasal, Sinus - [place] Viral Transport No Organism Detected Laboratory Results 02/20/17 03:15 02/20/17 03:15 02/20/17 02/21/17 02/22/17 05:59 05:59 05:59 Intake Total 620 2585 Output Total 1500 900 900 Balance -880 1685 -900 PT 14.9 SEC (12.0-15.0) 02/17/17 05:10 INR 1.17 (0.83-1.16) H 02/17/17 05:10 CXR personally reviewed - Physical Exam Constitutional: chronically ill appearing Cardiovascular: regular rate and rhythym, systolic murmur, No irregularly irregular, No diastolic murmur Respiratory: inspiratory crackles (bilat bases), respiratory distress (mild), No reduced air movement, No expiratory wheeze Gastrointestinal: normoactive bowel sounds, soft, non-tender abdomen, no palpable masses ICD10 Worksheet Patient Problems: Problems Problem Status Onset Chronic Disease Mgmt/Transitional Care Acute CHF (congestive heart failure) Acute Hypoxia Acute Pneumonia Acute
[2017-02-21 09:52] LABS: % IMMATURE GRANULYOCYTES 0.7 % (0.0-1.1); ABSOLUTE IMMATURE GRANULOCYTES 0.06 10^3/uL (0.00-0.10); ADD DIFF? NO; ADD MORPH? NO; ADD SCAN? NO; ATYPICAL LYMPHOCYTE FLAG 0 (0-99); FRAGMENT RBC FLAG 0 (0-99); HEMATOCRIT 33.9 % (40.0-51.0); HEMOGLOBIN 11.1 g/dL (13.7-17.5); LEFT SHIFT FLG 0 (0-99); LIPEMIA HEMOLYSIS FLAG 80 (0-99); MEAN CELL HEMOGLOBIN 32.8 pg (27.9-34.1); MEAN CELL HEMOGLOBIN CONCENTR. 32.7 g/dL (32.4-36.7); MEAN CELL VOLUME 100.3 fL (81.5-99.8); MEAN PLATELET VOLUME 10.5 fL (8.7-11.7); PLATELET CLUMPS FLAG 10 (0-99); PLATELET COUNT 441 10^3/uL (150-400); RED BLOOD CELL COUNT 3.38 10^6/uL (4.40-6.38); RED CELL DISTRIBUTION WIDTH 14.6 % (11.5-15.2)
[2017-02-21] MEDS: FLUTICASONE HFA 110 MCG MDI IH SCH ×2 (10:36→22:03)
[2017-02-21 10:56] LABS: ANION GAP 12 mEq/L (8-16); CALCIUM 8.9 mg/dL (8.5-10.4); CARBON DIOXIDE 26 mEq/l (22-31); CHLORIDE 99 mEq/L (97-110); CREATININE 0.9 mg/dL (0.7-1.3); GLOMERULAR FILTRATION RATE > 60; GLUCOSE 135 mg/dL (70-100); POTASSIUM 4.9 mEq/L (3.5-5.2); SODIUM 137 mEq/L (134-144)
[2017-02-21] MEDS: TRIFLUOPERAZINE HCL 1 MG TAB PO SCH (21:50)
[2017-02-21] MEDS: FLUTICASONE NASAL 120 SPRAYS/16 GM MDI EACHNARE SCH (21:59)
[2017-02-22] MEDS: IBUPROFEN 600 MG TAB PO SCH ×3 (05:41→21:59)
[2017-02-22] MEDS: PIPERACILLIN/TAZO 4.5 GM/DEX 100 ML IV SCH ×4 (05:41→23:28)
[2017-02-22] MEDS: LEVOTHYROXINE 100 MCG TAB PO SCH (05:42)
[2017-02-22] MEDS: IPRATROPIUM/ALBUTEROL 3 ML DEYVIAL IH SCH ×4 (06:02→23:12)
[2017-02-22] MEDS: PSYLLIUM METAMUCIL 1 PKT PO SCH (09:05)
[2017-02-22] MEDS: ENOXAPARIN 40 MG/0.4 ML SYR SC SCH (09:38)
[2017-02-22] MEDS: lamoTRIgine 100 MG TAB PO SCH ×2 (09:38→19:49)
[2017-02-22] MEDS: guaiFENesin 600 MG TAB.ER PO SCH ×2 (09:38→19:48)
[2017-02-22] MEDS: AZITHROMYCIN IV 500 MG in D5W 250 ML IV SCH (09:38)
[2017-02-22] MEDS: PANTOPRAZOLE SODIUM 40 MG TAB PO SCH (09:39)
[2017-02-22] MEDS: MULTIVITAMINS 1 EACH TAB PO SCH (09:39)
[2017-02-22] MEDS: predniSONE 20 MG TAB PO SCH (09:39)
[2017-02-22] MEDS: FLUTICASONE HFA 110 MCG MDI IH SCH ×2 (10:43→21:31)
--- NOTE | 2017-02-22 14:31 | HOSPPROG ---
Hospitalist Progress Note Assessment/Plan: CAP: overall looks improved today - changed to azith/zosyn (from azith/rocephin) 02/20 given his apparent decompensation -improved to 02/21 I suspect it was gentle diuresis and not abx that improved cxr no longer on diuretics legionella urinary Ag neg add IS reactive airways exacerbation: steroids added yesterday + nebs acute hypoxic resp failure d/t CAP add IS seizure disorder - cont lamictal - neuro evaluated given possible sz in setting of acute illness - no change in meds indet troponin - no CP; likely d/t acute illness; echo ok; outpatient f/u hold further workup down's syndrome - home meds hypothyroid - synthroid ppx - lovenox Subjective: feels breathing improved. cxr improved from 02/20-02/21 (images reviewed/interp by me) Objective: Vital Signs Temp Pulse Resp BP Pulse Ox 36.6 C 55 L 18 111/56 L 95 02/22/17 11:37 02/22/17 11:37 02/22/17 11:37 02/22/17 11:37 02/22/17 11:37 Microbiology 02/17/17 00:28 Blood Culture - Final Blood Laboratory Results 02/21/17 09:40 02/21/17 09:40 02/21/17 02/22/17 02/23/17 05:59 05:59 05:59 Intake Total 2585 925 240 Output Total 900 900 Balance 1685 25 240 PT 14.9 SEC (12.0-15.0) 02/17/17 05:10 INR 1.17 (0.83-1.16) H 02/17/17 05:10 - Physical Exam Constitutional: no apparent distress, appears nourished Eyes: PERRL, anicteric sclera, EOMI Ears, Nose, Mouth, Throat: moist mucous membranes, hearing normal Cardiovascular: regular rate and rhythym, no murmur, rub, or gallop, No tachycardia Respiratory: no respiratory distress, other (crackles R base), No no rales or rhonchi Gastrointestinal: normoactive bowel sounds, soft, non-tender abdomen Genitourinary: no bladder fullness, No sun in urethra Skin: warm, normal color Musculoskeletal: full muscle strength, no muscle tenderness Neurologic: AAOx3 ICD10 Worksheet Patient Problems: Problems Problem Status Onset CHF (congestive heart failure) Acute Chronic Disease Mgmt/Transitional Care Acute Hypoxia Acute Pneumonia Acute
[2017-02-22] MEDS: TRIFLUOPERAZINE HCL 1 MG TAB PO SCH (19:48)
[2017-02-22] MEDS: FLUTICASONE NASAL 120 SPRAYS/16 GM MDI EACHNARE SCH (19:51)
[2017-02-23] MEDS: LEVOTHYROXINE 150 MCG TAB PO SCH (05:24)
[2017-02-23] MEDS: PIPERACILLIN/TAZO 4.5 GM/DEX 100 ML IV SCH (05:24)
[2017-02-23] MEDS: IPRATROPIUM/ALBUTEROL 3 ML DEYVIAL IH SCH ×4 (06:04→22:29)
[2017-02-23] MEDS: IBUPROFEN 600 MG TAB PO SCH ×3 (08:00→21:53)
[2017-02-23 08:24] LABS: ANION GAP 8 mEq/L (8-16); CALCIUM 8.7 mg/dL (8.5-10.4); CARBON DIOXIDE 29 mEq/l (22-31); CHLORIDE 99 mEq/L (97-110); GLOMERULAR FILTRATION RATE > 60; GLUCOSE 95 mg/dL (70-100); POTASSIUM 4.8 mEq/L (3.5-5.2); SODIUM 136 mEq/L (134-144)
[2017-02-23] MEDS: MULTIVITAMINS 1 EACH TAB PO SCH (08:53)
[2017-02-23] MEDS: lamoTRIgine 100 MG TAB PO SCH ×2 (08:53→20:24)
[2017-02-23] MEDS: guaiFENesin 600 MG TAB.ER PO SCH (08:53)
[2017-02-23] MEDS: predniSONE 20 MG TAB PO SCH (08:54)
[2017-02-23] MEDS: PANTOPRAZOLE SODIUM 40 MG TAB PO SCH (08:54)
[2017-02-23] MEDS: FLUTICASONE HFA 110 MCG MDI IH SCH ×2 (09:00→21:59)
[2017-02-23] MEDS: AZITHROMYCIN IV 500 MG in D5W 250 ML IV SCH (09:14)
[2017-02-23] MEDS: ENOXAPARIN 40 MG/0.4 ML SYR SC SCH (09:17)
[2017-02-23] MEDS: PSYLLIUM METAMUCIL 1 PKT PO SCH (09:22)
--- NOTE | 2017-02-23 12:48 | HOSPPROG ---
Hospitalist Progress Note Assessment/Plan: 71 yo M with PMH of Down's syndrome, seizure d/o and armand presenting after being found down with associated hypoxic respiratory failure and PNA # acute hypoxic respiratory failure: in the setting of pna as next, improved but with continued desaturations to the mid 80s on RA. CTA without PE, echo showing normal EF. Some component of hypoventilation and atelectasis contributing, minimally mobile. Continue to work on pulmonary toilet with IS, C& DB, OOB to chair tid. # bilateral pna: personally reviewed cxr's/chest CTA and notable for bilateral infiltrates, R>L. Has been on azithro (day 7) and zosyn (day 4), and completed 3 days of ceftriaxone prior to zosyn. Will plan for a 10 day total course of abx given relatively slow improvement and complete last 3 days on levofloxacin # acute on chronic diastolic heart failure: has e/o ble edema today and ? if continued hypoxia in part 2/2 pulmonary edema, will start gentle diuresis and monitor # seizure vs syncope: found down and presumed was following seizure event likely precipitated by acute illness. Has not had any significant events on telemetry on personal review and has not had any recurrent issues. 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 Suspect demand ischemia rather than ACS # dispo: IP, will likely be ready for dc in coming 1-2 days so long as o2 needs continue to decrease Patient new to my care. Old records reviewed and summarized as above. Subjective: no significant overnight events, patient states he is feeling good, denies sob or cough but was noted to be coughing prior to my entering room Objective: Vital Signs Temp Pulse Resp BP Pulse Ox 36.7 C 55 L 18 105/51 L 98 02/23/17 11:20 02/23/17 11:26 02/23/17 11:26 02/23/17 11:26 02/23/17 11:26 Laboratory Results 02/21/17 09:40 02/23/17 07:53 02/22/17 02/23/17 02/24/17 05:59 05:59 05:59 Intake Total 925 1355 300 Output Total 900 400 Balance 25 955 300 PT 14.9 SEC (12.0-15.0) 02/17/17 05:10 INR 1.17 (0.83-1.16) H 02/17/17 05:10 awake alert pleasant anicteric op clear mmm rrr mildly jorje no mrg dec bs at bases bilaterally, productive cough soft nt nd 1+ ble edema warm dry well perfused cognitive dysfunction noted but interactive and pleasant - Time Spent With Patient Time Spent with Patient: greater than 35 minutes Time Spent with Patient: Greater than 35 minutes spent on this patients care, greater than 50% of time spent counseling, educating, and coordinating care regarding the above mentioned plan. ICD10 Worksheet Patient Problems: Problems Problem Status Onset Chronic Disease Mgmt/Transitional Care Acute CHF (congestive heart failure) Acute Hypoxia Acute Pneumonia Acute
[2017-02-23] MEDS: FUROSEMIDE 20 MG/2 ML VIAL IVP SCH (14:11)
[2017-02-23] MEDS: ACETYLCYSTEINE 10% 30 ML VIAL IH SCH ×2 (16:03→22:29)
[2017-02-23] MEDS: TRIFLUOPERAZINE HCL 1 MG TAB PO SCH (20:23)
[2017-02-23] MEDS: FLUTICASONE NASAL 120 SPRAYS/16 GM MDI EACHNARE SCH (20:24)
[2017-02-24 05:31] LABS: % IMMATURE GRANULYOCYTES 1.5 % (0.0-1.1); ABSOLUTE IMMATURE GRANULOCYTES 0.14 10^3/uL (0.00-0.10); ADD DIFF? NO; ADD MORPH? NO; ADD SCAN? NO; ATYPICAL LYMPHOCYTE FLAG 20 (0-99); FRAGMENT RBC FLAG 0 (0-99); HEMATOCRIT 35.1 % (40.0-51.0); HEMOGLOBIN 11.3 g/dL (13.7-17.5); LEFT SHIFT FLG 10 (0-99); LIPEMIA HEMOLYSIS FLAG 80 (0-99); MEAN CELL HEMOGLOBIN 33.1 pg (27.9-34.1); MEAN CELL HEMOGLOBIN CONCENTR. 32.2 g/dL (32.4-36.7); MEAN CELL VOLUME 102.9 fL (81.5-99.8); MEAN PLATELET VOLUME 10.6 fL (8.7-11.7); PLATELET CLUMPS FLAG 0 (0-99); PLATELET COUNT 401 10^3/uL (150-400); RED BLOOD CELL COUNT 3.41 10^6/uL (4.40-6.38); RED CELL DISTRIBUTION WIDTH 15.1 % (11.5-15.2)
[2017-02-24 05:43] LABS: ANION GAP 5 mEq/L (8-16); CALCIUM 8.7 mg/dL (8.5-10.4); CARBON DIOXIDE 33 mEq/l (22-31); CHLORIDE 100 mEq/L (97-110); GLOMERULAR FILTRATION RATE > 60; GLUCOSE 101 mg/dL (70-100); POTASSIUM 4.4 mEq/L (3.5-5.2); SODIUM 138 mEq/L (134-144)
[2017-02-24] MEDS: IPRATROPIUM/ALBUTEROL 3 ML DEYVIAL IH SCH ×2 (05:49→10:11)
[2017-02-24] MEDS: ACETYLCYSTEINE 10% 30 ML VIAL IH SCH ×2 (05:49→10:11)
[2017-02-24] MEDS: IBUPROFEN 600 MG TAB PO SCH (06:17)
[2017-02-24] MEDS: LEVOTHYROXINE 150 MCG TAB PO SCH (06:17)
[2017-02-24 07:48] VITALS: RESP 16
[2017-02-24] MEDS: predniSONE 20 MG TAB PO SCH (09:25)
[2017-02-24] MEDS: PANTOPRAZOLE SODIUM 40 MG TAB PO SCH (09:25)
[2017-02-24] MEDS: FUROSEMIDE 20 MG/2 ML VIAL IVP SCH (09:25)
[2017-02-24] MEDS: lamoTRIgine 100 MG TAB PO SCH (09:26)
[2017-02-24] MEDS: ENOXAPARIN 40 MG/0.4 ML SYR SC SCH (09:27)
[2017-02-24] MEDS: MULTIVITAMINS 1 EACH TAB PO SCH (09:27)
[2017-02-24] MEDS: PSYLLIUM METAMUCIL 1 PKT PO SCH (09:29)
--- NOTE | 2017-02-24 10:16 | PDDCSUM ---
Discharge Summary Discharge Summary: Dates of service 02/17-02/24/17 Discharge dx: # acute hypoxic respiratory failure # bilateral lower lobe pna # acute on chronic diastolic heart failure # presumed seizure vs less likely syncope # seizure d/o # armand # demand ischemia Consultations: neurology Procedures performed: chest CTA, echo, videofluoro swallow evaluation Hospital course by problem: 71 yo M with PMH of Down's syndrome, seizure d/o and armand presenting after being found down with associated hypoxic respiratory failure and PNA # acute hypoxic respiratory failure: in the setting of pna as next, improved but with continued desaturations to the mid 80s on RA. CTA without PE, echo showing normal EF. Some component of hypoventilation and atelectasis contributing, and will need to dc w/supplemental o2. Has had e/o reactive airways exacerbation as well and has been on prednisone, will dc on pred taper # bilateral pna: bilateral infiltrates on cxr but clinically improved s/p 7 days azithro/zosyn (prior to that ctx), complete 10 day course with remainder of tx with levofloxacin # acute on chronic diastolic heart failure: with improved pulmonary edema but continued mild BLE edema that has improved. Will need to f/u with PCP to determine if he will need to be on lasix chronically as an OP # seizure vs syncope: found down and presumed was following seizure event likely precipitated by acute illness. Has not had any significant events on telemetry on personal review and has not had any recurrent issues. Appreciate neuro consult # sz d/o: continue lamictal # armand: continue cpap # elevated trop: minimal elevation on arrival in the setting of hypoxia and likely seizure ABRASIVE GRINDER, no chest pain or ecg changes, no wall motion abnormalities on echo. Suspect demand ischemia rather than ACS # dispo: dc back home with home health and in care of his caregiver Meds: see EHR F/u with PCP > 40 minutes spent in dc of patient more than half in coordination of care
[2017-02-24] MEDS: FLUTICASONE HFA 110 MCG MDI IH SCH (10:22)
--- NOTE | 2017-02-24 10:23 | PDIAF ---
- Diagnosis Code Status: Full Code - Medication Management Discharge Medications: Medications to Continue on Transfer Ibuprofen [Motrin (*)] 600 mg PO Q8 #20 tab 11/19/15 [Last Taken Unknown] Albuterol [Proventil Inhaler HFA (*)] 1 - 2 puffs IH Q4H PRN 02/17/17 [Last Taken Unknown] Bacitracin/Polymyxin B Sulfate [Bacitracin-Polymyxin Eye Oint] 3.5 gm OP AMIN 12/31 [Last Taken Unknown] Econazole 1% [Spectazole 1%] 1 britni TP DAILY PRN 02/17/17 [Last Taken Unknown] Fluticasone Hfa 110 Mcg [Flovent 110 MCG Hfa MDI (*)] 1 puffs IH BID 02/17/17 [ Last Taken Unknown] Fluticasone Nasal [Flonase Nasal [place]] 1 sprays NASAL HS 02/17/17 [Last Taken Unknown] Herbals/Supplements -Info Only 1 ea PO DAILY 02/17/17 [Last Taken Unknown] Levothyroxine [Synthroid 100 mcg (*)] 100 mcg PO MOTUWETHFR@06 02/17/17 [Last Taken Unknown] Levothyroxine [Synthroid 150 mcg (*)] 150 mcg PO SUSA@06 02/17/17 [Last Taken Unknown] Miconazole Nitrate [Desenex] 1 britni TP DAILY PRN 02/17/17 [Last Taken Unknown] Multivitamins [Multivitamin (*)] 1 each PO DAILY 02/17/17 [Last Taken Unknown] Omeprazole 40 mg PO DAILYAC 02/17/17 [Last Taken Unknown] Psyllium Husk (with Sugar) [Metamucil Packet] 1 each PO DAILY 02/17/17 [Last Taken Unknown] Trifluoperazine HCl [Stelazine 1MG (*)] 3 mg PO HS 02/17/17 [Last Taken Unknown] lamOTRIGine [Lamotrigine] 150 mg PO BID 02/17/17 [Last Taken Unknown] Acetaminophen [Tylenol 325mg (*)] 650 mg PO Q4HRS PRN #0 tab 02/24/17 [Last Taken Unknown] levOFLOXACIN [levAQUIN (*)] 750 mg PO DAILY AT 10AM #2 tab 02/24/17 [Last Taken Unknown] predniSONE 40 mg PO DAILY 10 Days 02/24/17 [Last Taken Unknown] Discharge Medications: Refer to the Discharge Home Medication list for PRN reason. - Orders Services needed: Home Care, Registered Nurse Home Care Face to Face: I certify that this patient was under my care and that I had the required [id number] encounter meeting the encounter requirements on the discharge day. My findings support the fact that the patient is homebound as defined in CMS Chapter 7 Medicare Benefits Manual 30.1.1, The condition of the patient is such that there exists a normal inability to leave home and consequently, leaving home would require a considerable and taxing effort. Oxygen: 2L continuous by DE for now - Follow Up Care Current Providers and Referrals: Vandana Bhagat MD [Primary Care Provider] - As per Instructions
[2017-02-24 12:11] VITALS: BP 99/78; PULSE 66; TEMP 98; O2SAT 91
== END 2017-02-24 13:19 | disposition home health service (06) | DRG 193 ==
LOC: EDUNIT# → F2W 02-17 01:09
PROVIDERS: ADMIT Internal Medicine; ATTEND Internal Medicine
DX: J18.9 Pneumonia, unspecified organism (principal); J96.01 Acute respiratory failure with hypoxia; I50.33 Acute on chronic diastolic (congestive) heart failure; Q90.9 Down syndrome, unspecified; I24.8 Other forms of acute ischemic heart disease; R56.9 Unspecified convulsions; K21.9 Gastro-esophageal reflux disease without esophagitis; G47.33 Obstructive sleep apnea (adult) (pediatric); E03.9 Hypothyroidism, unspecified
CPT/HCPCS: 80175-90; 87449-90; 92610-GN; 92611-GN; 96365; 97116-GP; 97162-GP; 97165-GO; 97530-GO; 97535-GO; G8978-GP-CK; G8979-GP-CI; G8987-GO-CJ; G8987-GO-CK; G8988-GO-CJ; G8989-GO-CJ; G8996-GN-CJ; G8997-GN-CJ; G8998-GN-CH; J0456; J0696; J1335; J1650; J1940; J2543; Q9967

== ENCOUNTER 2018-12-06 15:41 | Inpatient (IN) | payer OTHER, MEDICAID ==
--- NOTE | 2018-12-06 16:36 | EDPHY ---
General Time Seen by Provider: 12/06/18 16:06 Narrative: CLINICAL IMPRESSION: Closed left shoulder fracture dislocation ASSESSMENT/PLAN: 67-year-old male with past medical history of Down syndrome, seizure disorder, mental health disorder, presents to the emergency department after failing to use his walker while ambulating, tripping and falling with both arms forward. Patient has a closed, fracture dislocation of the left shoulder. He is neurovascularly intact. No right arm pain. No midline neck pain. No other injuries. He did not his head. He is not anticoagulated. X-rays reviewed with orthopedic physician surveyor instrument assistant Bronson in the ED who discussed with Dr. Chu. Patient will need surgery tomorrow morning. He has been NPO since noon. Plan to admit the patient to hospitalist service for surgery tomorrow. Discussed with Dr. Chatterjee who accepts admission. DIFFERENTIAL DX: Differential includes but not limited to acute fracture, strain/sprain, joint dislocation, soft tissue contusion ED PROCEDURES: Procedure: Splint placement. A left arm sling splint was applied to left arm by sonography technician, supervised by myself. After application of the splint I returned and re-examined the patient. The splint was adequately immobilizing the joint and distal to the splint the patient's circulation and sensation was intact. ED COURSE: 4:30 p.m.: X-rays reviewed by myself. Fracture dislocation of the left shoulder. Neurovascularly intact. Will discussed with Ortho. X-rays reviewed Dr. Ken. NPO as of noon today. Ortho paged 4:50PM Bronson Candelario, in ED to eval patient and discuss with Dr. Chu. After discussion with Ortho, plan to admit the patient to hospitalist service with surgical repair tomorrow morning. This was discussed with the patient and his caregiver who are in agreement. CHIEF COMPLAINT: Left shoulder pain after ground level fall HPI: 67-year-old male with a history of Down syndrome presents to the emergency department with his caregiver. Caregiver provides majority of patient's history. He reports the patient is supposed to ambulate with a walker, was not using a walker today when he tripped and fell forward with outstretched arms. He is here complaining of left shoulder pain. He did not hit his head and has no other complaints. No reports of numbness to the arm hand or fingers. He is dependent on oxygen day and night at 2 L. He has past medical history of mental health illness and seizure disorder. He is not anticoagulated. He had lunch at noon but has not had anything since that time. No prior Ortho injury or surgery to the left shoulder. PAST MEDICAL HISTORY: Seizure disorder, mental health illness, hypothyroidism, Down syndrome, oxygen dependent Pertinent Past Surgical History: None reported Social History: Down syndrome, here with his caregiver, supposed to be using a walker but fell because he was not using a walker. REVIEW OF SYSTEMS: All other systems negative Constitutional: No fever, no chills Musculoskeletal: No deformity, + joint pain Skin: No rashes, color change or open wounds. Neurological: No sensory loss or weakness. PHYSICAL EXAM: General Appearance: Alert, oriented, down syndrome, on 2 L oxygen which is his baseline, well hydrated, non-toxic appearing, VSS, no hypoxia. Neurological: Alert and oriented x 3, normal sensation to left deltoid and left arm. Intact distal neurovascular exam. No closed head injury Skin: Warm, dry, no rashes, no nodules on palpation. No open wounds Musculoskeletal: Pain to left shoulder. Limited range of motion secondary to pain. No reproducible pain to left elbow hand or wrist. Right arm without pain and full range of motion. No open wounds. MEDICAL DECISION MAKING: Patient was seen independently. Secondary supervising physician at time of evaluation was Dr. Ken . Diagnosis: Closed fracture dislocation of the left shoulder . New, requires workup Summary: See assessment and plan for summary of ED visit Independent visualization of images, tracing, or specimens yes. Decision to obtain medical records or history from someone other than the patient: Patient's caregiver Review / Summarize previous medical records: None available Discussed patient with another provider: Physician surveyor instrument assistant with Orthopedics, Bronson, Dr. Chatterjee Patient Progress: Stable for admission. - History Smoking Status: Never smoked - Objective Vital Signs: Initial Vital Signs Temperature (C) 37.1 C 12/06/18 15:53 Heart Rate 66 12/06/18 15:53 Respiratory Rate 16 12/06/18 15:53 Blood Pressure 138/59 H 12/06/18 15:53 O2 Sat (%) 94 12/06/18 15:53 O2 Delivery Mode Nasal Cannula O2 (L/minute) 2 Allergies/Adverse Reactions: carbamazepine [From Tegretol] Allergy (Verified 02/16/17 22:59) NONFORM Allergy (Uncoded 08/28/12 09:55) OIL BASED PAINTS Allergy (Uncoded 08/28/12 09:55) Home Medications: Medication Instructions Recorded Ibuprofen [Motrin (*)] 600 mg PO Q8 #20 tab 11/19/15 Albuterol [Proventil Inhaler HFA 1 - 2 puffs IH Q4H PRN 02/17/17 (*)] Bacitracin/Polymyxin B Sulfate 3.5 gm OP AMIN 02/17/17 [Bacitracin-Polymyxin Eye Oint] Econazole 1% [Spectazole 1%] 1 britni TP DAILY PRN 02/17/17 Fluticasone Hfa 110 Mcg [Flovent 1 puffs IH BID 02/17/17 110 MCG Hfa MDI (*)] Fluticasone Nasal [Flonase Nasal 1 sprays NASAL HS 02/17/17 [place]] Herbals/Supplements -Info Only 1 ea PO DAILY 02/17/17 Levothyroxine [Synthroid 100 mcg 100 mcg PO MOTUWETHFR@02/17/17 (*)] Levothyroxine [Synthroid 150 mcg 150 mcg PO SUSA@02/17/17 (*)] Miconazole Nitrate [Desenex] 1 britni TP DAILY PRN 02/17/17 Multivitamins [Multivitamin (*)] 1 each PO DAILY 02/17/17 Omeprazole 40 mg PO DAILYAC 02/17/17 Psyllium Husk (with Sugar) 1 each PO DAILY 02/17/17 [Metamucil Packet] Trifluoperazine HCl [Stelazine 1MG 3 mg PO HS 02/17/17 (*)] lamOTRIGine [Lamotrigine] 150 mg PO BID 02/17/17 Acetaminophen [Tylenol 325mg (*)] 650 mg PO Q4HRS PRN #0 tab 02/24/17 levOFLOXACIN [levAQUIN (*)] 750 mg PO DAILY AT 10AM #2 tab 02/24/17 predniSONE 40 mg PO DAILY 10 Days 02/24/17 Departure - Departure Disposition: [facility] Inpatient Acute Clinical Impression: Fracture dislocation of shoulder joint Condition: Fair Referrals: Vandana Bhagat MD [Primary Care Provider] - As per Instructions
--- NOTE | 2018-12-06 17:10 | PDCONSULT ---
Professor Of Physics Note: ORTHOPEDIC SURGERY CONSULT NOTE Patient with history of siezure disorder, downs syndrome, oxygen dependent, and other social issues who is walker dependent fell onto left shoulder while using walker. Presented to [facility] where x-rays showed significant fracture dislocation and significant displacement of humeral head. Discussed case with Dr. Chu. His plan is below. PLAN: Admit to Hospital service NPO after midnight Plan for Left Shoulder Sebastián-arthroplasty vs ORIF Proximal humerus/humeral head tomorrow morning 12/07 approx 11:00am Shoulder immobilizer. MARY JO LAKHANI Ordered c-spine w/flex-ext series to rule out instability due to nature of injury. Dr. Chu will see patient tomorrow morning to discuss surgical plan and consent. Bronson Llanos PA-C for Dr. Chu (orthopedic surgery). Please call with any questions or concerns [phone]
--- NOTE | 2018-12-06 17:48 | PDGENHP ---
History and Physical History and Physical: CC: Left shoulder pain after fall HISTORY: This patient who has Down syndrome and gait instability he is supposed to use a walker was not using his walker when he tripped over his shoe and fell at home today. He landed on his left side and has suffered pain to his left shoulder. On of evaluation here in the ER he has a fracture dislocation of the left shoulder. He was seen by Dr. Chu team in they are planning to do surgery tomorrow morning. The patient has no pain besides his shoulder. Other than this fall the patient does not have any other recent events at home, and he does not have any symptoms of any other recent illness. He has a chronic seizure disorder but has not had a seizure for some years now. ROS: A comprehensive 10 system review revealed no other significant findings PAST MEDICAL HISTORY: Down syndrome Seizure disorder Sleep apnea on CPAP Hypothyroidism on replacement Heart murmur Mild pulmonary hypertension 40 mm by echo in 2018 FAMILY MEDICAL HISTORY: No concerning medical issues that he or his cloth covered helmet puller are aware of SOCIAL HISTORY: He lives with a cloth covered helmet puller in the caretakers home, the caretakers here with him now. This is Mr. Rusty Polanco MEDICATIONS: The patients list has been reconciled by our clinical pharmacist in the EMR. I have reviewed the list and ordered appropriate medicines. PHYSICAL EXAMINATION: Vital Signs: All stable without fever Examination: General: alert, oriented, relaxed, in no distress [facility] with left shoulder in a sling; no signs of injury other than his shoulder Skin: warm, dry, good color, no rash HEENT: normal Neck: no mass or jvd Resps: relaxed Lungs: clear breath sounds Heart: regular, 1/6 systolic murmur Abdomen: soft, nondistended, nontender, +BS, no mass Upper Extremities: Left shoulder in sling, normal pulse sensory and motor function distally Lower Extremities: no edema, warm No Bleeding or bruising Neurologic: normal speech/language, normal zoo veterinarian, no focal weakness IV site: looks normal LABORATORY DATA: None so far RADIOLOGY STUDIES: I reviewed images from x-rays of the left shoulder, the humeral head is acutely fractured from the shaft and is quite a bit displaced inferiorly along side the shaft ASSESSMENT: * Fall with injury at home today, mechanical fall * Fracture dislocation of left shoulder requiring surgical repair * Down syndrome * Sleep apnea with mild pulmonary hypertension, uses CPAP at home; stable at this time * Seizure disorder, stable on medication * No other acute or chronic medical issues that need attention at this time in terms of any preoperative diagnostic or treatment plans before surgery PLANS: * Admission to hospital * Plan is surgery tomorrow morning * Plan DVT prophylaxis after surgery * Fall risk precautions * PT and OT eval * May well need nursing home rehabilitation, assess his mobility and safety after surgery but with a shoulder injury and need for walker he may not be able to go home safely. Does live with a caregiver I have reviewed the patient's case in detail with Petros Srivastava of the ER I have reviewed the patient's past medical records as part of this assessment, including previous hospital admission records
[2018-12-06 17:57] LABS: PLATELET COUNT 272 10^3/uL (150-400)
[2018-12-06] MEDS ORDERED: traMADol 50 MG TAB PO PRN (20:50)
[2018-12-06] MEDS ORDERED: ONDANSETRON 4 MG/2 ML VIAL IVP PRN (21:19)
[2018-12-06] MEDS: oxyCODONE IR 5 MG TAB PO PRN (21:23)
[2018-12-06] MEDS: FLUTICASONE NASAL 120 SPRAYS/16 GM MDI NS SCH (21:25)
[2018-12-06] MEDS: PERPHENAZINE 8 MG TAB PO SCH (21:25)
[2018-12-06] MEDS: lamoTRIgine 100 MG TAB PO SCH (21:30)
[2018-12-06 23:55] LABS: INR 1.05 (0.83-1.16); PROTIME(PATIENT) 13.3 SEC (12.0-15.0)
[2018-12-07] MEDS: oxyCODONE IR 5 MG TAB PO PRN ×2 (04:18→08:36)
[2018-12-07] MEDS ORDERED: LEVOTHYROXINE 150 MCG TAB PO SCH (06:00)
--- NOTE | 2018-12-07 06:24 | PDMN ---
Medical Necessity Medical necessity: Pt meets IP criteria as of 12/06 per MD and MCG MG-MD ( Musculoskeletal Disease); est los > 2 mn for ongoing tx and management of shoulder dislocation with fracture s/p fall requiring surgical reapir in a pt with down's syndrome and seizure disorder; requiring pain control, surgical consult, PT and OT.
[2018-12-07] MEDS ORDERED: ceFAZolin 2 GM/DEXTROSE 100 ML IV ONE (07:09)
[2018-12-07] MEDS ORDERED: LR 1,000 ML IV SCH (07:30)
--- NOTE | 2018-12-07 08:23 | HOSPPROG ---
Hospitalist Progress Note Assessment/Plan: Erma is a 67 Down syndrome male who fell while not using his walker He sustained a left shoulder fracture dislocation. First encounter, chart reviewed. *left shoulder fx -OR today *gait instability w fall -PT and OT to see -has a caregiver who is with him at home *Sleep apnea -CPAP -has pulmonary htn *seizure disorder -resumed home meds *down syndrome -at his baseline *dvt prophylaxis: -initiate after surgery *plan: IV fluids while NPO, pain management Subjective: Erma said his pain is managed. Objective: Vital Signs Temp Pulse Resp BP Pulse Ox 36.6 C 63 17 138/68 H 95 12/07/18 04:00 12/07/18 04:00 12/07/18 04:00 12/07/18 04:00 12/07/18 04:00 12/06/18 12/07/18 12/08/18 05:59 05:59 05:59 Intake Total 250 Output Total 550 Balance -300 PT 13.3 SEC (12.0-15.0) 12/06/18 23:30 INR 1.05 (0.83-1.16) 12/06/18 23:30 - Physical Exam Constitutional: no apparent distress, appears nourished Eyes: PERRL, other (wearing glasses) Ears, Nose, Mouth, Throat: hearing normal Cardiovascular: regular rate and rhythym, systolic murmur (soft) Respiratory: no respiratory distress Gastrointestinal: normoactive bowel sounds Skin: warm, other (left hand warm, good cms) Psychiatric: interacting appropriately (alert and calm) ICD10 Worksheet Patient Problems: Problems Problem Status Onset Fracture dislocation of shoulder joint Acute CHF (congestive heart failure) Acute Chronic Disease Mgmt/Transitional Care Acute Hypoxia Acute Pneumonia Acute
[2018-12-07] MEDS: lamoTRIgine 100 MG TAB PO SCH (08:36)
[2018-12-07] MEDS ORDERED: LR 1,000 ML IV ONE (11:32)
[2018-12-07] MEDS ORDERED: CEFAZOLIN 2 GM/DEXTROSE/100 ML BAG IV ONE (11:59)
--- NOTE | 2018-12-07 12:51 | PDANEPAE ---
ANE Past Medical History - Pulmonary History Hx COPD: Yes Hx Oxygen in Use at Home: Yes O2 in Use at Home (L/minute): 2 Hx Sleep Apnea: Yes Sleep Apnea Screening Result - Last Documented: Positive - Endocrine History Hx Diabetes: No Hypothyroid: Yes Obesity: moderate ANE Review of Systems Review of Systems: ANE Patient History - Allergies Allergies/Adverse Reactions: carbamazepine [From Tegretol] Allergy (Verified 02/16/17 22:59) NONFORM Allergy (Uncoded 08/28/12 09:55) OIL BASED PAINTS Allergy (Uncoded 08/28/12 09:55) - Home Medications Home medications: home medication list seen and reviewed Home Medications: Fluticasone Nasal [Flonase Nasal Reading] 1 sprays NASAL HS 02/17/17 [Last Taken Unknown] Levothyroxine [Synthroid 100 mcg (*)] 100 mcg PO MOTUWETHFR@02/17/17 [Last Taken Unknown] Levothyroxine [Synthroid 150 mcg (*)] 150 mcg PO SUSA@02/17/17 [Last Taken Unknown] Multivitamins [Multivitamin (*)] 1 each PO DAILY 02/17/17 [Last Taken Unknown] Psyllium Husk (with Sugar) [Metamucil Packet] 1 each PO DAILY 02/17/17 [Last Taken Unknown] lamOTRIGine [Lamotrigine] 150 mg PO BID 02/17/17 [Last Taken Unknown] Omeprazole [Omeprazole] 40 mg PO DAILY 12/06/18 [Last Taken Unknown] Perphenazine [PERPHENAZINE] 8 mg PO HS 12/06/18 [Last Taken Unknown] Herbals/Supplements -Info Only 1 ea PO DAILY 12/07/18 [Last Taken Unknown] Fulda-3 Fatty Acids [Fish Oil 1000 mg (*)] 1,000 mg PO DAILY 12/07/18 [Last Taken Unknown] - NPO status NPO Status: no food or drink >8 hours NPO Since - Liquids (Date): 12/07/18 NPO Since - Liquids (Time): 00:00 NPO Since - Solids (Date): 12/07/18 NPO Since - Solids (Time): 00:00 - Anes Hx Anes Hx: no prior problems - Smoking Hx Smoking Status: Never smoked ANE Labs/Vital Signs - Labs Result Diagrams: 12/06/18 17:25 12/06/18 17:25 - Vital Signs Blood Pressure: 119/59 Heart Rate: 57 Respiratory Rate: 25 O2 Sat (%): 94 Height: 152.4 cm Weight: 72.3 kg ANE Physical Exam - Airway Neck exam: FROM Mallampati Score: Class 3 Mouth exam: dentures - Pulmonary Pulmonary: no respiratory distress, reduced air movement - Cardiovascular Cardiovascular: regular rate and rhythym, no murmur, rub, or gallop - ASA Status ASA Status: III ANE Anesthesia Plan Anesthesia Plan: GA w LMA
[2018-12-07] MEDS ORDERED: BUPIVACAINE/EPI 0.5% 30 ML SDV ONE (13:19)
[2018-12-07] MEDS ORDERED: ceFAZolin 1 GM/5 ML SYR ONE (13:20)
[2018-12-07] MEDS ORDERED: fentaNYL 100 MCG/2 ML INJ IVP ONE (13:21)
[2018-12-07] MEDS ORDERED: fentaNYL 100 MCG/2 ML INJ ONE (13:21)
[2018-12-07] MEDS ORDERED: PROPOFOL 200 MG/20 ML VIAL ONE (13:30)
[2018-12-07] MEDS ORDERED: DEXAMETHASONE 4 MG/ML VIAL ONE ×2 (13:31→13:32)
[2018-12-07] MEDS ORDERED: ONDANSETRON 4 MG/2 ML VIAL ONE (13:31)
[2018-12-07] MEDS ORDERED: ROPIVACAINE 0.2% 80 MG, EPINEPHrine 0.2 MG, KETOROLAC TROMETHAMINE 30 MG, morphINE 10 M... IU ONE (13:31)
[2018-12-07] MEDS ORDERED: PHENYLEPHRINE HCL 100 MCG/ML SYR ONE ×2 (13:46→14:47)
[2018-12-07] MEDS ORDERED: ePHEDrine SULFATE 25 MG/5 ML SYR ONE ×2 (13:56→15:37)
--- NOTE | 2018-12-07 14:53 | ASMTCMCOM ---
CM Note CM Note Notes: Pt with Down Syndrome, resides with bread wrapping machine feeder had fall at home when not using his walker. Pt to OR today. PT/OT to eval when appropriate. Chart review indicates pt has had [facility] in the past. CM to follow for d/c planning. Date Signed: 12/07/2018 02:52 PM Electronically Signed By:RONNIE Olmedo
[2018-12-07] MEDS ORDERED: CALCIUM CHLORIDE 1 GM/10 ML INJ ONE (15:52)
[2018-12-07] MEDS ORDERED: VASOPRESSIN 20 UNIT/ML VIAL ONE (16:01)
[2018-12-07] MEDS ORDERED: oxyCODONE IR 5 MG TAB PO PRN (16:03)
[2018-12-07] MEDS ORDERED: PROMETHAZINE HCL 25 MG/ML INJ IVP PRN (16:03)
[2018-12-07] MEDS ORDERED: POLYMYXIN B SULFATE 500,000 UNIT/10 ML SYR IRR ONE (16:03)
[2018-12-07] MEDS ORDERED: fentaNYL 100 MCG/2 ML INJ IVP PRN (16:03)
[2018-12-07] MEDS ORDERED: ONDANSETRON 4 MG/2 ML VIAL IVP PRN (16:03)
[2018-12-07] MEDS ORDERED: LR 500 ML IV PRN (16:03)
[2018-12-07] MEDS ORDERED: NALOXONE HCL 0.4 MG/ML INJ IVP PRN (16:03)
[2018-12-07] MEDS ORDERED: BACITRACIN 50,000 UNITS/10 ML SYR IRR ONE (16:03)
[2018-12-07] MEDS ORDERED: ALBUMIN 5% 250 ML BOTTLE IV ONE ×2 (16:17→16:34)
[2018-12-07] MEDS ORDERED: HYDROmorphONE/DILAUDID 1 MG/ML INJ IVP PRN (17:07)
[2018-12-07] MEDS ORDERED: NS 1,000 ML IV SCH (17:15)
--- NOTE | 2018-12-07 17:24 | POSTANESTH ---
Post Anesthetic Evaluation Cardiovascular Status: Similar to Pre-Op Cond Respiratory Status: Similar to Pre-op Cond. Level of Consciousness/Mental Status: Can Participate in Eval, Moderately Sleepy Pain Control: Adequate, Prn Tx Ordered Nausea/Vomiting Control: Adequate, Prn Tx Ordered Complications Possibly Related to Anesthesia: None Noted
[2018-12-07] MEDS ORDERED: EPINEPHrine 1 MG/10 ML SYR IVP ONE (17:37)
[2018-12-07] MEDS: PHENYLEPHRINE HCL 100 MCG/ML SYR IVP PRN ×3 (17:38→18:21)
[2018-12-07] MEDS: ENOXAPARIN 40 MG/0.4 ML SYR SC SCH (18:32)
[2018-12-07] MEDS: MULTIVITAMINS 1 EACH TAB PO SCH (18:33)
[2018-12-07] MEDS: PSYLLIUM METAMUCIL 1 PKT PO SCH (18:35)
[2018-12-07] MEDS: PANTOPRAZOLE SODIUM 40 MG TAB PO SCH (18:35)
[2018-12-07 18:44] LABS: PLATELET COUNT 224 10^3/uL (150-400)
--- NOTE | 2018-12-07 19:15 | POSTANESTH ---
Post Anesthetic Evaluation Cardiovascular Status: Tx Hyper/Hypo-tension Respiratory Status: Similar to Pre-op Cond. Level of Consciousness/Mental Status: Can Participate in Eval, Mildly Sleepy, Arousable Pain Control: Adequate, Prn Tx Ordered Nausea/Vomiting Control: Adequate, Prn Tx Ordered Complications Possibly Related to Anesthesia: Other, See Comments (Pt has been hypotensive in PACU (BP syst 70s-80s) since surgery. EBL moderate, about 500ml , and H/H now about 10.5/33. IV fluid, phenylephrine and ephedrine help a little, but I've asked hospitalist to admit him to [facility]-ICU overnight. She'll see him soon.)
--- NOTE | 2018-12-07 19:22 | GOP ---
[f rep st] OPERATIVE REPORT DATE OF OPERATION: 12/06/2018 SURGEON: Hunter Chu MD HIV NURSE: Bronson Llanos PA-C. ANESTHESIA: General. PREOPERATIVE DIAGNOSIS: Fracture, left proximal humerus. POSTOPERATIVE DIAGNOSIS: 1. Fracture, left proximal humerus, with disruption of greater and lesser tuberosity fracture segmen ts. 2. Chronic humeral fracture. PROCEDURE PERFORMED: 1. Reverse left total shoulder arthroplasty. 2. Debridement, chronic fracture, humeral head. FINDINGS: DESCRIPTION OF PROCEDURE: The patient was taken to the operating room, administered general anesthes ia, placed in the beach chair position. The left shoulder and upper extremity were prepped and drape d in normal sterile fashion. A deltopectoral incision was made through dermal and subcutaneous tissu es. The anatomy was completely distorted. We found the biceps interval and traced this proximally. The subscapularis was already partially injured and avulsed medially with several small fracture fra gments that were glommed in with abundant scar tissue anteriorly. The capsular interval was split. The missing humeral head was eventually palpated inferiorly. This was extensively scarred-in in the subdeltoid and axillary area. Fragments were removed from the greater tuberosity segment that were r eflected with the soft tissues and scarred in posteriorly. We were eventually able to isolate out th e canal and bring the humeral shaft more anteriorly. The head segment had to be bluntly dissected ar ound. This was in a dangerous subaxillary zone. It was completely scarred in and probably had been there for quite some time. We were eventually able to free it up and get a Ange upon it and bring it out. Any further soft tissue attachments to this were released with the cautery. This segment wa s then completely removed. We examined the proximal humeral shaft. We determined that a primary hem iarthroplasty or total shoulder arthroplasty would not be acceptable. We elected to open a reverse t otal shoulder system. The neck cutting guide was placed in the proximal humerus and our proximal nec k cut was made. This is a little more distal than a typical head-neck cut. The trials were put in p lace. We were able to ream up to a 12 distally, but proximally we were only able to get to a 10 broa ch. This broach fit a little bit snug, but was felt to be the appropriate size. The head and neck p rotector were put in place. We subluxed the proximal humeral segment posteriorly. This allowed us t o put a Fukuda retractor posteriorly and a batwing retractor anteriorly. The glenoid was exposed. C apsular release was performed around the glenoid. The remaining labral tissue, which was minimal, wa s removed. The starting hole was then made just inferior to midline. We then reamed with a small re amer and extended up to the medium reamer. The drill hole was then made for a glenosphere peg. The glenosphere was a small glenosphere. This was opened. Bone graft taken from the head was packed int o the canal of the glenosphere. The glenosphere was then attached to its conformal pad former and impacted into place in the glenoid. This was then secured with 3 screws, one superior, one inferior, and one anter ior. We felt we got good fixation with these 3 screws. Two locking nuts were then placed over the s crews. The glenosphere was then impacted into position and secured with the screw. The proximal hum erus was then re-exposed. The broach was again passed down through the canal. A size 10 broach was selected. We initially went with a +2.[address] short. We added a +5 mm humeral adapte r tray. We initially went with a less constrained liner. This was not acceptable, and we had to rat dl this up to a 38 mm, +2.5 constrained liner after making several trial attempts. This was then f elt to be stable. The real implants were opened. They were assembled on the back table. On insertion of the humeral # 10 stem, a crack was made in the proximal humerus. The cerclage system was brought out and a cerclag e wire was passed around the proximal humeral metadiaphyseal area. This was tensioned and then the c lamp was secured and crimped. The wire was then cut to appropriate length. The stem was then slight ly reinserted further. We felt we got good fixation proximally. The real +5 mm humeral polyethylene insert was impacted onto the stem with the 2.5 mm x 38 mm constrained liner. This was then reduced to the 38 mm glenosphere. It was felt to be stable through a full range of motion. Implants utilize d were the [employer] reverse shoulder with a reverse glenoid plate, a 4.5 x 30 mm screw, a 4.5 x 38 mm screw, a 4.5 x 18 mm screw with locking caps placed over the superior screw and the anterior screw, a 38 mm glenosphere locking screw, a 10 mm humeral stem, a +5 humeral adapter tray, a 38 mm +2.5 cons trained liner. Thorough lavage was performed. Closure was performed in the subscapularis and superi or aspect of the pectoralis major with a #2 FiberWire suture. Closure was performed of the deltopect oral interval with a 2-0 Vicryl suture followed by closure of the subcutaneous tissues with a 2-0 Blair ryl suture followed by closure of the dermis with munir and Dermabond. A sterile compression dress ing was applied. The patient tolerated the procedure well, was transferred back to the recovery room in stable conditi on with a sling and abduction pillow applied. COMPLICATIONS: Difficult bone extraction secondary to chronic nature of injury. /[id number]/MODL
[2018-12-07] MEDS ORDERED: NS 1,000 ML IV ONE (20:09)
--- NOTE | 2018-12-07 20:26 | HOSPPROG ---
Hospitalist Progress Note Assessment/Plan: Discussed patients care plan with anesthesia--patient hypotensive in post operative period largely in systolics of 80s but reportedly without change in mental status and no other complaints. Surgery felt to be uncomplicated with minimal blood loss. Decision made to have patient transfer to ICU from PACU. Called by nursing after patient arrival to ICU--now hypotensive to systolics of 50-60s/30-40s. Went to bedside to evaluate patient. He does have Downs syndrome but is awake and alert, able to answer questions appropriately. Brothers present at bedside state he appears to be at baseline. Called Dr. Mendieta of surgery for central line placement and started NE with improved BP. Unclear what is leading to hypotension at this time--ordered ecg/troponin, repeat h/h, lactic acid. No e/o pna or ptx on cxr. Will get echo in am. Low threshold to start broad spectrum abx but at this time really nothing to suggest infection. > 45 min critical care time spent in evaluation of labs/imaging and coordination of care with specialists as well as at bedside coordinating with nurses and managing patient care. Objective: Vital Signs Temp Pulse Resp BP Pulse Ox 36.6 C 81 22 H 80/65 L 95 12/07/18 20:08 12/07/18 17:59 12/07/18 20:08 12/07/18 20:08 12/07/18 20:08 Laboratory Results 12/07/18 18:36 12/06/18 12/07/18 12/08/18 05:59 05:59 05:59 Intake Total 250 1830 Output Total 550 1400 Balance -300 430 PT 13.3 SEC (12.0-15.0) 12/06/18 23:30 INR 1.05 (0.83-1.16) 12/06/18 23:30 ICD10 Worksheet Patient Problems: Problems Problem Status Onset Fracture dislocation of shoulder joint Acute Chronic Disease Mgmt/Transitional Care Acute CHF (congestive heart failure) Acute Hypoxia Acute Pneumonia Acute
[2018-12-07] MEDS ORDERED: NOREPINEPHRINE BITARTRATE 4 MG in NS 500 ML IV SCH (20:30)
[2018-12-07] MEDS ORDERED: LIDOCAINE 1% 300 MG/30 ML SDV ONE (21:10)
[2018-12-07] MEDS: NS 1,000 ML IV SCH (23:33)
[2018-12-07] MEDS: FLUTICASONE NASAL 120 SPRAYS/16 GM MDI NS SCH (23:35)
[2018-12-07] MEDS: ceFAZolin 2 GM/DEXTROSE 100 ML IV SCH (23:49)
[2018-12-08] MEDS: lamoTRIgine 100 MG TAB PO SCH ×3 (01:41→21:04)
[2018-12-08] MEDS: PERPHENAZINE 8 MG TAB PO SCH ×2 (01:41→21:05)
[2018-12-08] MEDS: ceFAZolin 2 GM/DEXTROSE 100 ML IV SCH (05:32)
[2018-12-08 05:45] LABS: PLATELET COUNT 218 10^3/uL (150-400)
[2018-12-08] MEDS: LEVOTHYROXINE 100 MCG TAB PO SCH (06:33)
--- NOTE | 2018-12-08 06:33 | SOAPPROG ---
SOAP Progress Note Assessment/Plan: Assessment: POD #1 S/P Reverse Total Shoulder Arthroplasty, Left. Performed by Dr. Chu Post-operative hypotension. Transferred to ICU for monitoring. Dr. Mendieta place a central line yesterday PM. Remains hypotensive with NE, but has leveled out to 70-80s systolic. Appears Echo will be performed today. Followed by Hospitalist, Railcar Switcher, Ortho. Plan: Continue ICU per dance choreographer and Hospitalist. We appreciate all managed care. Regarding ortho, keep shoulder, left, immobilized with sling. He may be at 50% WBAT LUE. Will need PT/OT evaluation for best ambulation. Walker with forearm platform if possible vs wheelchair DVT prophylaxis: per Hospitalist. SCDs, Mobilize/ambulate Discharge: Pending If there are any questions or issues, please reach out. Bronson Llanos PA-C for Dr. Chu [phone] 12/08/18 06:27 Subjective: Erma is arousable but sleepy. Hard to communicate with CPAP and downs syndrome. But responds to commands well. Does not appear to be any any distress or significant pain currently. Objective: Vital Signs Temp Pulse Resp BP Pulse Ox 37.1 C 68 20 104/49 L 92 12/08/18 05:00 12/08/18 06:00 12/08/18 06:00 12/08/18 06:00 12/08/18 06:00 Laboratory Results 12/08/18 05:30 12/08/18 05:30 12/07/18 12/08/18 12/09/18 05:59 05:59 05:59 Intake Total 250 3607 Output Total 550 2400 Balance -300 1207 PT 13.3 SEC (12.0-15.0) 12/06/18 23:30 INR 1.05 (0.83-1.16) 12/06/18 23:30 PHYSICAL EXAM LUE Dressing intact clean and dry. Sling appropriately fixed. Cryo-cuff applied and functioning well. Squeezed my fingers well. Wiggles his fingers and moves wrist well. Distal neurovasculature intact. ICD10 Worksheet Patient Problems: Problems Problem Status Onset Fracture dislocation of shoulder joint Acute CHF (congestive heart failure) Acute Chronic Disease Mgmt/Transitional Care Acute Hypoxia Acute Pneumonia Acute
--- NOTE | 2018-12-08 08:11 | HOSPPROG ---
Hospitalist Progress Note Assessment/Plan: #Hypotension -no e/o infection, H/H stable -indeterminate trop; likely demand ischemia. Repeat trop, echo pending -off Levophed #Left prox fracture -POD #1 left shoulder arthroplasty -arm in sling, PT when clinically stable #Down's syndrome: per fam, not very talkative at baseline #Leukocytosis: trending down. Afebrile #Seizure: home meds #DIANA: CPAP #Diet: regular #DVT ppx: Lovenox Disp: ICU admission to monitor blood pressure Left VM with brother and caregiver to give update. Spoke with [id number] Subjective: denies CP or SOB Objective: Vital Signs Temp Pulse Resp BP Pulse Ox 37.1 C 60 14 101/65 99 12/08/18 05:00 12/08/18 07:30 12/08/18 07:30 12/08/18 07:30 12/08/18 07:30 Laboratory Results 12/08/18 05:30 12/08/18 05:30 12/07/18 12/08/18 12/09/18 05:59 05:59 05:59 Intake Total 250 3607 Output Total 550 2400 Balance -300 1207 PT 13.3 SEC (12.0-15.0) 12/06/18 23:30 INR 1.05 (0.83-1.16) 12/06/18 23:30 - Time Spent With Patient Time Spent with Patient: greater than 35 minutes Time Spent with Patient: Greater than 35 minutes spent on this patients care, greater than 50% of time spent counseling, educating, and coordinating care regarding the above mentioned plan. - Physical Exam Constitutional: No uncomfortable Ears, Nose, Mouth, Throat: moist mucous membranes Cardiovascular: regular rate and rhythym, systolic murmur Respiratory: no respiratory distress Gastrointestinal: normoactive bowel sounds, No tenderness Musculoskeletal: other (left arm in sling) Neurologic: CN II-XII Intact ICD10 Worksheet Patient Problems: Problems Problem Status Onset Fracture dislocation of shoulder joint Acute Chronic Disease Mgmt/Transitional Care Acute CHF (congestive heart failure) Acute Hypoxia Acute Pneumonia Acute
[2018-12-08] MEDS: PANTOPRAZOLE SODIUM 40 MG TAB PO SCH (09:23)
[2018-12-08] MEDS: MULTIVITAMINS 1 EACH TAB PO SCH (09:23)
[2018-12-08] MEDS: ENOXAPARIN 40 MG/0.4 ML SYR SC SCH (09:27)
[2018-12-08] MEDS: PSYLLIUM METAMUCIL 1 PKT PO SCH (09:33)
--- NOTE | 2018-12-08 11:53 | ASMTCMCOM ---
CM Note CM Note Notes: Patient is POD #1 reverse total shoulder arthroplasty. PT/OT brandt pending. I spoke w patient's 08/04 caregiver Rusty Polanco. He understands that patient will have more needs given his surgery. He is open to SNF but would like to speak w patient's brother Stephen ([facility], cell [phone]) as well as an RN that works for his agency about SNF facilities. We also talked about patient going home w home care. Rusty understands that patient will have more needs given his shoulder surgery. Case Management will follow. Date Signed: 12/08/2018 11:52 AM Electronically Signed By:Cely Mario RN
[2018-12-08] MEDS ORDERED: HYDROmorphONE/DILAUDID 1 MG/ML INJ IVP PRN (12:46)
[2018-12-08] MEDS: NS 1,000 ML IV SCH (13:31)
--- NOTE | 2018-12-08 13:51 | ECHO ---
[email or web address] [address] [address] Main: [phone] Echocardiography Examination Transthoracic Name: CHARISSE OLIVA MR#: [id number] Study Date: 12/08/2018 Study Time: 10:53 AM Date of : 1950 Age: 67 year(s) Height: 152.4 cm (60 in.) Weight: 72.12 kg (159 lb.) BSA: 1.69 m2 Gender: Male Examination: Echo Contrast: Image Quality: Technically Difficult Rhythm: Normal sinus rhythm Heart Rate: BP: 106 mmHg/43 mmHg Indication: hypotension Procedure Staff Referring Physician: Heavy Duty Diesel Mechanic: Dominique Davalos [facility] Reading Physician: Adan Chen MD Requesting Provider: Indication: hypotension Measurements Chambers AV/MV Label Value Normal Value Label Value Normal Value EF lower range (%) 60 % AV PGmax 6 mmHg EF upper range (%) 65 % AV Vmax 1.18 m/s IVSd, 2D 1 cm (0.6cm - 1.1cm) CA (continuity eq. 2 cm2 LVDd, 2D 4.3 cm (4.2cm - 5.9cm) Vmax) LVDs, 2D 2.9 cm (2.1cm - 4cm) MV A Vmax 1.01 m/s LVEF, 2D 61 % (54% - 74%) MV DT 257 ms LVOT PGmax 2 mmHg MV E Vmax 0.99 m/s LVOT Vmax 0.76 m/s (0.7m/s - 1.1m/s) MV E/A 0.98 LVOTd 2 cm (1.9cm - 2.1cm) TV/PV LVPWd, 2D 0.9 cm (0.6cm - 1cm) Label Value Normal Value RVDd, 2D 3.6 cm (1.9cm - 3.8cm) RA Pressure 5 mmHg TAPSE 2 cm RVSP 32 mmHg LADs, 2D 3 cm (3cm - 4cm) TR Pmax 27 mmHg Additional Vessels TR Vmax 2.58 m/s Label Value Normal Value PV PGmax 6 mmHg AoAsc 2.9 cm PV Vmax, Caliper 1.19 m/s (0.6m/s - 0.9m/s) AoRoot, MM 3 cm (2.2cm - 3.7cm) Conclusions Patient: CHARISSE OLIVA Study Date: 12/08/2018 Page 1 of 3 10:53 AM Left Ventricle: Left ventricle is normal in size. EF range is estimated at 60 % - 65 %. There are no regional wall motion abnormalities. Left ventricular diastolic function parameters are normal. Right Ventricle: Grossly normal RV size and function.. Left Atrium: The left atrium is normal in size. Right Atrium: The right atrium is normal in size. Tricuspid Valve: Right Ventricular systolic pressure is measured at 32 mmHg. Pericardium: No pericardial effusion. Findings Left Ventricle: Left ventricle is normal in size. Normal global systolic left ventricular function. EF evaluated by fractional shortening (2D). EF range is estimated at 60 % - 65 %. There are no regional wall motion abnormalities. Left ventricular diastolic function parameters are normal. Right Ventricle: Grossly normal RV size and function.. Left Atrium: The left atrium is normal in size. Right Atrium: The right atrium is normal in size. Mitral Valve: Mitral valve appears structurally normal. Trivial mitral regurgitation. No mitral valve stenosis. Aortic Valve: Aortic leaflets are normal in appearance. Mild aortic regurgitation is present. There is no aortic stenosis. The aortic valve is probably trileaflet. Tricuspid Valve: Tricuspid valve leaflets are structurally normal. Mild tricuspid regurgitation. Right Ventricular systolic pressure is measured at 32 mmHg. Pulmonary artery pressure normal. Pulmonic Valve: Pulmonic leaflets are structurally normal. Aorta: The aortic root size in M-mode measures 3.0 cm. The aortic root exhibits normal size. The ascending aorta measures 2.9 cm. Ascending aorta is normal in size. Aorta Measurements AoRoot, MM is 3.0 cm. IVC: The inferior vena cava is normal in size. Pericardium: No pericardial effusion. Exam Details Procedure Ordered: Echo Patient: CHARISSE OLIVA Study Date: 12/08/2018 Page 2 of 3 10:53 AM Procedure Status: Routine study Image Quality: Technically Difficult Facility Location: Cardiac Echo 1 (No Signature Object) Patient: CHARISSE OLIVA Study Date: 12/08/2018 Page 3 of 3 10:53 AM [id number]
[2018-12-08] MEDS: ACETAMINOPHEN 500 MG TAB PO SCH ×2 (14:29→21:05)
--- NOTE | 2018-12-08 18:45 | GCON ---
[f rep st] CONSULTATION CRITICAL CARE CONSULTATION DATE OF CONSULTATION: 12/08/2018 REASON FOR CONSULTATION: Intensive care unit evaluation and management of postoperative hypotension. HISTORY: The patient is a gentleman with underlying Down's syndrome. He fell at home 2 days ago and had a fracture dislocation of his left shoulder. He was taken to the operating room yesterday for s urgical repair. This went well. Blood loss was not excessive; however, postoperatively he had hypot ension, with systolic blood pressures reportedly in the 60s. He was started on Levophed and admitted to the intensive care unit. Hypotension has subsequently resolved. He is off Levophed with blood p ressures of approximately 110/60. He is doing well, reportedly at baseline regarding his mental stat us. Urine output has been good. He did receive intravenous fluids and is on normal saline at 75. H ematocrit is stable at approximately 30. He has no signs or symptoms of infection. White blood cell count is 15,000. PAST MEDICAL HISTORY: Remarkable for his Down's syndrome. 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 SOCIAL HISTORY: Alcohol and tobacco are negative. He lives with a caregiver, has a supportive broth er. FAMILY HISTORY: Negative/noncontributory. REVIEW OF SYSTEMS: Unobtainable. Negative x10 except as noted above. PHYSICAL EXAMINATION: GENERAL: Reveals a gentleman with Down's appearance. VITAL SIGNS: Blood pre ssure is 111/60, heart rate 78 with sinus rhythm on the monitor. Oxygen is in place at 4 L with satu rations of 97%. He is afebrile. NECK: Unremarkable for lymphadenopathy or thyromegaly. HEENT: Na luis e cannula oxygen is in place. CHEST: Clear bilaterally. There are no rales, no rhonchi. HEART: Regular in rate and rhythm. There are no gallops. P2 appears normal. ABDOMEN: Somewhat overweigh t, soft, nontender. Bowel sounds are present but diminished. EXTREMITIES: Remarkable for the left shoulder/arm being in a sling post arthroplasty. There is trace lower extremity edema. NEUROLOGIC: Examination is intact. He is not particularly verbal. He is awake and alert. LABORATORY: White blood cell count is 15,000 with hematocrit of 30.5. Platelets are 218,000. PT wa s normal on admission. Sodium is 135, potassium 4.6, CO2 28, BUN 15 with creatinine 0.7. Glucose is 139. Troponins have been 0.077 and 0.106. Urinalysis on admission was negative. ASSESSMENT: 1. Postoperative hypotension. Reason for this is unclear. May have been a combination of factors i ncluding anesthetics, postoperative medications, and perhaps some volume depletion. He has responded nicely to treatment. Hypotension has resolved. 2. Left shoulder fracture, with total left shoulder arthroplasty. 3. Acute blood-loss anemia: Mild. Hematocrit is 30. Follow. 4. Elevated troponins: Mild, probably nonspecific. Cardiac echo is within normal limits. 5. Metabolic: No issues identified currently. 6. Prophylaxis: He is on enoxaparin and pantoprazole. PLAN AND RECOMMENDATIONS: Patient will be kept in the intensive care unit for now. Blood pressure r emains normal. He can be transferred to a medical-surgical status. Hematocrit will be followed. Cu rrent medications to be continued. Appropriate pain control will be maintained. His usual outpatien t medications will be continued. Further plans and recommendations will be made based on his progress over the next 12-24 hours. /[id number]/MODL
[2018-12-08] MEDS: FLUTICASONE NASAL 120 SPRAYS/16 GM MDI NS SCH (21:06)
[2018-12-09] MEDS: NS 1,000 ML IV SCH ×2 (02:52→15:14)
[2018-12-09] MEDS: ACETAMINOPHEN 500 MG TAB PO SCH ×3 (05:44→20:11)
[2018-12-09] MEDS: LEVOTHYROXINE 100 MCG TAB PO SCH (05:45)
[2018-12-09] MEDS: MULTIVITAMINS 1 EACH TAB PO SCH ×2 (08:42→08:43)
[2018-12-09] MEDS: lamoTRIgine 100 MG TAB PO SCH ×4 (08:42→20:12)
[2018-12-09] MEDS: ENOXAPARIN 40 MG/0.4 ML SYR SC SCH (08:43)
[2018-12-09] MEDS: PANTOPRAZOLE SODIUM 40 MG TAB PO SCH (08:43)
[2018-12-09] MEDS: PSYLLIUM METAMUCIL 1 PKT PO SCH (08:43)
--- NOTE | 2018-12-09 09:01 | HOSPPROG ---
Hospitalist Progress Note Assessment/Plan: DIAGNOSES: * Fall with injury * Fracture dislocation left humerus, status post reverse left shoulder total arthroplasty * Postoperative hypotension, resolved, uncertain etiology * Post hemorrhagic anemia after injury and surgery - hemoglobin still decreasing * Troponin elevations likely caused by hypotension, did not suspect acute coronary syndrome * Chronic gait instability * Down syndrome * Seizure disorder on home medicines * Pain management PLANS: * Will review with Dr. Ricky Montano when he arrives * I believe the patient should be able to leave ICU today * Repeat hemoglobin again later today to see if it is continuing to drop, along with type and cross * ? Discharge planning scenario, may need intermediate rehabilitation but will have to review with family and district scout executive Seen by me today on hospitals rounds as well as multidisciplinary rounds SUBJECTIVE: Patient still with some pain No other difficulties OBJECTIVE Vitals reviewed: Blood pressure is now very stable, pulse in the 50s no fever Oxygen: 2 L nasal cannula so far Patient Accounts Coordinator, my review: Sinus Exam: Sleepy but awake, oriented, appears at his baseline mentation skin warm dry color ok resps not labored lungs clear BSs heart regular abd soft nondistended nontender, bowel sounds present limbs warm, no edema iv site ok Lab data: WBC down to 11,000 but still remains elevated Hemoglobin decreased further to 8 Objective: Vital Signs Temp Pulse Resp BP Pulse Ox 36.6 C 56 L 21 H 103/53 L 96 12/08/18 20:00 12/09/18 07:50 12/09/18 07:50 12/09/18 07:50 12/09/18 07:50 Laboratory Results 12/09/18 05:20 12/08/18 05:30 12/08/18 12/09/18 12/10/18 06:59 06:59 06:59 Intake Total 3607 2704 Output Total 2400 1276 Balance 1207 1428 PT 13.3 SEC (12.0-15.0) 12/06/18 23:30 INR 1.05 (0.83-1.16) 12/06/18 23:30 - Time Spent With Patient Time Spent with Patient: greater than 35 minutes Time Spent with Patient: Greater than 35 minutes spent on this patients care, greater than 50% of time spent counseling, educating, and coordinating care regarding the above mentioned plan. ICD10 Worksheet Patient Problems: Problems Problem Status Onset Fracture dislocation of shoulder joint Acute CHF (congestive heart failure) Acute Chronic Disease Mgmt/Transitional Care Acute Hypoxia Acute Pneumonia Acute
--- NOTE | 2018-12-09 16:04 | ASMTCMCOM ---
CM Note CM Note Notes: Spoke with pt's brother and provided education about SNFs. He requested list and would like to tour/ make a choice. CM left list in pt's room, notified RN and told pt. Pt was in room listening to music. He says he is motivated to keep working out to get stronger and is willing to go to SNF. CM to follow-up with pt's brother to obtain choice. Plan: SNF, pending pt choice Date Signed: 12/09/2018 04:03 PM Electronically Signed By:LINCOLN Andrews
--- NOTE | 2018-12-09 17:27 | PDINTPN ---
Pipe Line Gauger Progress Note Assessment/Plan: Assessment: Status post fall, left shoulder fracture, surgical replacement. Doing well. Down syndrome Acute blood-loss anemia. Hematocrit drifted down to 26, stable today on repeat. No evidence of ongoing active bleeding. Obstructive sleep apnea: Secondary to Down's. CPAP to be brought in. DVT prophylaxis: Enoxaparin. GI prophylaxis: Pantoprazole. Fall risk: Supposed to use a walker at home. Will be at increased risk secondary to left arm/shoulder immobilization Disposition: Options being looked at. May need SNF verses returning home with his caregiver. Plan: Continue care. Can transfer to a medical-surgical bed. Follow H&H. Continue CPAP at night. Oxygen is needed. Pain control as needed. Will sign off. 25 min of critical care time spent directly with the patient. Discussed with hospitalist, nursing, the ICU multi disciplinary team. Subjective: Doing well. Without significant obvious pain. Objective: Vital Signs Temp Pulse Resp BP Pulse Ox 36.5 C 60 22 H 138/69 H 96 12/09/18 15:42 12/09/18 15:42 12/09/18 15:42 12/09/18 15:42 12/09/18 15:42 Laboratory Results 12/09/18 12:08 12/08/18 05:30 12/08/18 12/09/18 12/10/18 05:59 05:59 05:59 Intake Total 3607 2704 Output Total 2400 1276 350 Balance 1207 1428 -350 PT 13.3 SEC (12.0-15.0) 12/06/18 23:30 INR 1.05 (0.83-1.16) 12/06/18 23:30 Physical Exam - Physical Exam General Appearance: alert, no apparent distress EENT: PERRL/EOMI, other (Nasal cannula in place at 2 L) Neck: No normal inspection (Thick neck) Respiratory: lungs clear, decreased breath sounds (At bases) Cardiac/Chest: bradycardia (Sinus) Abdomen: normal bowel sounds, non-tender, soft (Overweight) Skin: normal color, warm/dry Extremities: pedal edema (Trace), other (Left arm in a sling) Neuro/Psych: no motor/sensory deficits, cognition abnormalities (Consistent with down) ICD10 Worksheet Patient Problems: Problems Problem Status Onset Fracture dislocation of shoulder joint Acute Chronic Disease Mgmt/Transitional Care Acute CHF (congestive heart failure) Acute Hypoxia Acute Pneumonia Acute
[2018-12-09] MEDS: PERPHENAZINE 8 MG TAB PO SCH (20:11)
[2018-12-09] MEDS: FLUTICASONE NASAL 120 SPRAYS/16 GM MDI NS SCH (20:13)
--- NOTE | 2018-12-10 00:05 | SOAPPROG ---
SOAP Progress Note Assessment/Plan: Assessment: Pt. is POD #2 s/p reverse total shoulder arthroplasty, left. Surgeon, Dr. Chu. Pt. had been transferred to the ICU following episodes of hypotension, which has now stabilized. He is continuing to be monitored for acute anemia. It is now felt that he is stable enough to be moved to the med-surg floor. Hospitalists continue to follow. Plan: -LUE to remain in sling with abductor pillow. -Continue ice -Continue 50% WB of LUE. -Continue to work with PT/OT on best ambulation strategies-preferred walker with forearm platform vs. wheelchair -Continue Tylenol for pain -Continue Enoxaparin for VTE prophylaxis, per medicine/manager assessment recommendations. -Continue SCD's Subjective: Erma is awake, able to answer some basic questions. States that his shoulder feels ok, still having some pain. Objective: Pt. is awake, alert, in NAD-sitting up in chair listening to music. Respirations easy and unlabored. Distally, the pt. has brisk capillary refill to all digits in the LUE, skin is warm dry and pink and sensation is intact to all fingers and the entire hand to light touch. Pulses are brisk. He can move all fingers without difficulty. Examination of the left shoulder reveals an intact and dry dressing with no excess fluid accumulation. There is some surrounding ecchymosis above and below the dressing and into the pts. axilla, but no evidence of cellulitis. His left arm compartments are soft and NTTP. Plan: 12/09/18 23:55 Objective: Vital Signs Temp Pulse Resp BP Pulse Ox 36.7 C 69 14 151/71 H 95 12/09/18 20:00 12/09/18 20:00 12/09/18 20:00 12/09/18 20:00 12/09/18 20:00 Laboratory Results 12/09/18 12:08 12/08/18 05:30 12/08/18 12/09/18 12/10/18 05:59 05:59 05:59 Intake Total 3607 2704 1177 Output Total 2400 1276 350 Balance 1207 1428 827 PT 13.3 SEC (12.0-15.0) 12/06/18 23:30 INR 1.05 (0.83-1.16) 12/06/18 23:30 ICD10 Worksheet Patient Problems: Problems Problem Status Onset Fracture dislocation of shoulder joint Acute CHF (congestive heart failure) Acute Chronic Disease Mgmt/Transitional Care Acute Hypoxia Acute Pneumonia Acute
[2018-12-10] MEDS: NS 1,000 ML IV SCH (04:25)
[2018-12-10] MEDS: LEVOTHYROXINE 100 MCG TAB PO SCH (05:19)
[2018-12-10] MEDS: ACETAMINOPHEN 500 MG TAB PO SCH ×3 (05:20→21:30)
--- NOTE | 2018-12-10 07:51 | SOAPPROG ---
SOAP Progress Note Assessment/Plan: Assessment: POD #3 S/P Reverse Total Shoulder Arthroplasty, Left. Performed by Dr. Chu Plan: Most likely be transferred back to med/surg unit today per lead scientist and Hospitalist. We appreciate all managed care. Regarding ortho, keep shoulder, left, immobilized with sling. He may be at 50% WBAT LUE. Will need continued PT/OT evaluation for best ambulation. Walker with forearm platform if possible vs wheelchair DVT prophylaxis: per Hospitalist. SCDs, Mobilize/ambulate Discharge: Pending. SNF possibly per Case management and Hospitalist. If there are any questions or issues, please reach out. Bronson Llanos PA-C for Dr. Chu [phone] 12/10/18 07:48 12/10/18 07:51 Subjective: No acute distress. responds to commands appropriately. Per nurse, has been in good spirit and pain appears to be controlled. Objective: Vital Signs Temp Pulse Resp BP Pulse Ox 36.7 C 57 L 16 147/73 H 97 12/09/18 20:00 12/10/18 05:41 12/10/18 05:41 12/10/18 04:00 12/10/18 05:41 Laboratory Results 12/09/18 12:08 12/08/18 05:30 12/09/18 12/10/18 12/11/18 05:59 05:59 05:59 Intake Total 2704 2239 Output Total 1276 350 Balance 1428 1889 PT 13.3 SEC (12.0-15.0) 12/06/18 23:30 INR 1.05 (0.83-1.16) 12/06/18 23:30 PHYSICAL EXAM LUE Bandage clean dry. Cryo-cuff in place. Moves fingers well. Distal Neurovasculature appears intact. ICD10 Worksheet Patient Problems: Problems Problem Status Onset Fracture dislocation of shoulder joint Acute CHF (congestive heart failure) Acute Chronic Disease Mgmt/Transitional Care Acute Hypoxia Acute Pneumonia Acute
--- NOTE | 2018-12-10 09:07 | HOSPPROG ---
Hospitalist Progress Note Assessment/Plan: DIAGNOSES: * Fall with injury * Fracture dislocation left humerus, status post reverse left shoulder total arthroplasty * Postoperative hypotension, resolved, uncertain etiology * Post hemorrhagic anemia after injury and surgery - hemoglobin still decreasing * Troponin elevations likely caused by hypotension, did not suspect acute coronary syndrome * Chronic gait instability * Down syndrome * Seizure disorder on home medicines * Pain management PLANS: * continue routine post op care now * PT, OT * 50% wt bear L arm, keep in sling * ? Discharge planning will review w social insurance administrator, other staff: SNF could be very useful, but will need review w family and caregiver SUBJECTIVE: No pain hungry anbd thirsty OBJECTIVE Vitals reviewed: some BP fluctuation but otherwise stable Oxygen: 2 L nasal cannula so far Director Supply Chain, my review: Sinus Exam: awake, oriented, appears at his baseline mentation skin warm dry color ok resps not labored lungs clear BSs heart regular abd soft nondistended nontender, bowel sounds present limbs shoulder in sling, dressing clean dry, no cellulitis or bleeding iv site ok Objective: Vital Signs Temp Pulse Resp BP Pulse Ox 37.1 C 51 L 24 H 98/56 L 92 12/10/18 07:41 12/10/18 07:41 12/10/18 07:41 12/10/18 07:41 12/10/18 07:41 Laboratory Results 12/09/18 12:08 12/08/18 05:30 12/09/18 12/10/18 12/11/18 06:59 06:59 06:59 Intake Total 2704 2239 Output Total 1276 350 Balance 1428 1889 PT 13.3 SEC (12.0-15.0) 12/06/18 23:30 INR 1.05 (0.83-1.16) 12/06/18 23:30 ICD10 Worksheet Patient Problems: Problems Problem Status Onset Fracture dislocation of shoulder joint Acute CHF (congestive heart failure) Acute Chronic Disease Mgmt/Transitional Care Acute Hypoxia Acute Pneumonia Acute
[2018-12-10] MEDS: PSYLLIUM METAMUCIL 1 PKT PO SCH (09:54)
[2018-12-10] MEDS: PANTOPRAZOLE SODIUM 40 MG TAB PO SCH (09:54)
[2018-12-10] MEDS: lamoTRIgine 100 MG TAB PO SCH ×2 (09:54→20:03)
[2018-12-10] MEDS: ENOXAPARIN 40 MG/0.4 ML SYR SC SCH (09:54)
--- NOTE | 2018-12-10 14:19 | ASMTCMCOM ---
CM Note CM Note Notes: CM made multiple attempts to contact pt's MDPOA/Brothr Stephen to determine their choice for SNF, CM then called pt's caregiver Rusty and he requested ref[facility] to be [facility]. CM submit referrals, [facility] acceptance is pending nurse eval; still awaiting response from [facility]. and RN updated. Plan: [facility] pending acceptance. Date Signed: 12/10/2018 02:18 PM Electronically Signed By:LINCOLN Andrews
[2018-12-10] MEDS: PERPHENAZINE 8 MG TAB PO SCH (20:03)
[2018-12-10] MEDS: FLUTICASONE NASAL 120 SPRAYS/16 GM MDI NS SCH (20:03)
[2018-12-11] MEDS: ACETAMINOPHEN 500 MG TAB PO SCH ×2 (05:59→15:26)
[2018-12-11] MEDS: LEVOTHYROXINE 100 MCG TAB PO SCH (05:59)
[2018-12-11 08:40] VITALS: BP 100/60
--- NOTE | 2018-12-11 08:56 | CPEKG ---
Test Reason : down syndrome, hypoxia Blood Pressure : / mmHG Vent. Rate : 060 BPM Atrial Rate : 061 BPM P-R Int : 186 ms QRS Dur : 089 ms QT Int : 397 ms P-R-T Axes : -37 027 028 degrees QTc Int : 397 ms Sinus rhythm Atrial premature complex Confirmed by Wilfredo Christian ([id number]) on 12/11/2018 8:55:22 AM Referred By: Alejandro Chatterjee Confirmed By:Wilfredo Christian
--- NOTE | 2018-12-11 08:57 | CPEKG ---
Test Reason : OPEN Blood Pressure : / mmHG Vent. Rate : 077 BPM Atrial Rate : 069 BPM P-R Int : 200 ms QRS Dur : 097 ms QT Int : 385 ms P-R-T Axes : -06 048 004 degrees QTc Int : 436 ms Sinus rhythm Confirmed by Wilfredo Christian ([id number]) on 12/11/2018 8:57:14 AM Referred By: Alejandro Chatterjee Confirmed By:Wilfredo Christian
[2018-12-11] MEDS: lamoTRIgine 100 MG TAB PO SCH (09:02)
[2018-12-11] MEDS: ENOXAPARIN 40 MG/0.4 ML SYR SC SCH (09:02)
[2018-12-11] MEDS: MULTIVITAMINS 1 EACH TAB PO SCH (09:03)
[2018-12-11] MEDS: PANTOPRAZOLE SODIUM 40 MG TAB PO SCH (09:03)
[2018-12-11] MEDS: PSYLLIUM METAMUCIL 1 PKT PO SCH (09:03)
--- NOTE | 2018-12-11 10:10 | PDIAF ---
- Diagnosis Diagnosis: fracture dislocation R shoulder, gait instability, Downs syndrome Code Status: Full Code - Medication Management Discharge Medications: electronically signed and located in the Home Medication List. - Orders Services needed: Registered Nurse, Certified Hand Glass Cutter, Master Chief Telephone Operator , Physical Therapy, Occupational Therapy Diet Recommendation: no restrictions on diet Diet Texture: Regular Texture Diet Activity/Weight Bearing Restrictions: walker w elbow support; 50% wt bear with R arm Equipment: walkler w elbow support - Follow Up Care Current Providers and Referrals: Vandana Bhagat MD [Primary Care Provider] - As per Instructions
--- NOTE | 2018-12-11 13:47 | PDDCSUM ---
Discharge Summary Discharge Summary: DISCHARGE DIAGNOSES: * Mechanical fall with injury * Fracture dislocation left shoulder, status post reversed left shoulder total arthroplasty * Postoperative hypotension, uncertain etiology, resolved * Post hemorrhagic anemia from injury and surgery, stable * Minimal elevations of troponin likely due to hypotension mentioned above, no concern for acute coronary syndrome * Chronic gait instability * Down syndrome * Chronic seizure disorder stable here without seizure CONSULTANTS: Dr. Hunter Chu PROCEDURES: Reverse total arthroplasty of left shoulder HOSPITAL COURSE SUMMARY: This patient who has Down syndrome and a significant gait instability normally uses a walker for ambulating. At his home he got up to do some activity and while walking across room had a fall. He was not using his walker. He fell onto his left side and suffered fracture dislocation at the left shoulder with significant displacement. If taken to the operating room by Dr. Chu who performed a reverse shoulder total arthroplasty. Intraoperatively there were no complications. However the patient did suffer some significant hypotension and postoperative setting but it was unclear what the etiology of this hypotension was. He did not appear to have significant active bleeding after the surgery, though was fairly anemic postop. He was given IV fluid hydration and this hypotension did resolve. The patient tolerated the whole episode well. At this time he has recovered uneventfully otherwise. He is eating normally working well with physical therapy, no respiratory or cardiac compromise. He does notably have more significant gait instability than his baseline. At this point with his shoulder in immobilization and his gait instability he will need ongoing significant supervision and physical occupational therapy rehabilitation. PENDING TEST RESULTS: None MEDICATION CHANGES: None FOLLOW-UP PLAN: He will be transferred at this time to assisted facility for ongoing physical therapy and rehabilitation He will follow up with Dr. Chu per Dr. Chu instructions Greater than 35 minutes bedside and care coordination time today
--- NOTE | 2018-12-11 15:11 | ASMTLACE ---
[place] Length of stay for Answers: 4-6 days current admission Acuity / Level of Answers: Yes Care: Did the patient have an inpatient admission? Comorbidities - select Answers: Congestive heart failure all that apply Other Notes: Down Syndrome, seizure disorder, heart murmur # of Emergency department Answers: 1-2 visits in the last 6 months Score: 11 Date Signed: 12/11/2018 03:10 PM Electronically Signed By:RONNIE Olmedo
--- NOTE | 2018-12-11 15:13 | ASMTCMCOM ---
CM Note CM Note Notes: Pt medically stable for d/c to [facility], orders sent in [employer]scripts. RN Vanesa to call report. Juanita with [facility] scheduled wc transport for 1430. Pt brother Camacho and caregiver Rusty updated and agree with pt d/c. Date Signed: 12/11/2018 03:13 PM Electronically Signed By:RONNIE Olmedo
--- NOTE | 2018-12-11 16:05 | ASDISCHSUM ---
Discharge Information Plan Status:SNF Medically Cleared to Leave: Discharge Date:12/11/2018 03:26 PM CM D/C Disposition: ADT D/C Disposition:Care Home Facility Projected Discharge Date:12/10/2018 11:00 AM Transportation at D/C: Discharge Delay Reason: Follow-Up Date:12/10/2018 11:00 AM Discharge Slot: Final Diagnosis: Placement Information Referral Type:*[facility]p/SNF Referral ID:[id number] Provider Name:[facility] Address 1:[address] Address 2: City:[place] Selection Factors: State:[place] Patient Contact Information Contact Name:DEEDEE Relationship:Other Address:[address] [place] Work Phone: City:[place] Alternate Phone: State/Zip Code:[place] [address] Email: Financial Information Financial Class:Medicare Primary Plan Desc:MEDICARE INPATIENT Primary Plan Number:[id number] Secondary Plan Desc:MED[place] Secondary Plan Number:[id number] Assessment Information LACE LACE Length of stay for Answers: 4-6 days current admission Acuity / Level of Answers: Yes Care: Did the patient have an inpatient admission? 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 Pt to OR today. PT/OT to eval when appropriate. Chart review indicates pt has had [facility] in the past. CM to follow for d/c planning. Date Signed: 12/07/2018 02:52 PM Electronically Signed By:RONNIE Olmedo [facility] CM Progress Note CM Note CM Note Notes: Patient is POD #1 reverse total shoulder arthroplasty. PT/OT evals pending. I spoke w patient's 08/04 caregiver Rusty Polanco. He understands that patient will have more needs given his surgery. He is open to SNF but would like to speak w patient's brother Stephen ([facility], cell [phone]) as well as an RN that works for his agency about SNF facilities. We also talked about patient going home w home care. Rusty understands that patient will have more needs given his shoulder surgery. Case Management will follow. Date Signed: 12/08/2018 11:52 AM Electronically Signed By:Cely Mario RN [facility] CM Progress Note CM Note CM Note Notes: Spoke with pt's brother and provided education about SNFs. He requested list and would like to tour/ make a choice. CM left list in pt's room, notified RN and told pt. Pt was in room listening to music. He says he is motivated to keep working out to get stronger and is willing to go to SNF. CM to follow-up with pt's brother to obtain choice. Plan: SNF, pending pt choice Date Signed: 12/09/2018 04:03 PM Electronically Signed By:LINCOLN Andrews [facility] OPAL Progress Note CM Note CM Note Notes: CM made multiple attempts to contact pt's MDPOA/Brothr Stephen to determine their choice for SNF, OPAL then called pt's caregiver Rusty and he requested referrals to be sent to [facility] and [facility]. CM submit referrals, [facility] acceptance is pending nurse herrera; still awaiting response from [facility]. and RN updated. Plan: [facility] or [facility] pending acceptance. Date Signed: 12/10/2018 02:18 PM Electronically Signed By:LINCOLN Andrews [facility] OPAL Progress Note CM Note OPAL Note Notes: Pt medically stable for d/c to [facility] SNF, orders sent in [employer]. RN Vanesa to call report. Juanita with [facility] scheduled wc transport for 1430. Pt brother Camacho and caregiver Rusty updated and agree with pt d/c. Date Signed: 12/11/2018 03:13 PM Electronically Signed By:RONNIE Olmedo Intervention Information Intervention Type:*Incorrect Registration Date of Service:12/06/2018 06:17 AM Patient Type:Observation Staff Member:Monica Colon Hours: Discipline: Severity: Comment: Intervention Type:*IM-Signed Date of Service:12/11/2018 11:39 AM Patient Type:Inpatient Staff Member:Deidre Manzano Hours: Discipline: Severity: Comment:
--- NOTE | 2018-12-12 10:01 | PDDCSUM ---
Discharge Summary Discharge Summary: DISCHARGE SUMMARY ORTHOPEDIC SURGERY DISCHARGE DIAGNOSES: Acute vs Chronic Left Shoulder fracture/dislocation SURGICAL PROCEDURE: Reverse Total Shoulder Arthroplasty, Left SURGEON: Dr. Hunter Chu [facility] COURSE SUMMARY: This patient who has Down syndrome and a significant gait instability normally uses a walker for ambulating. At his home he got up to do some activity and while walking across room had a fall. He was not using his walker. He fell onto his left side and suffered fracture dislocation at the left shoulder with significant displacement. If taken to the operating room by Dr. Chu who performed a reverse shoulder total arthroplasty. Intraoperatively there were no complications. However the patient did suffer some significant hypotension and postoperative setting but it was unclear what the etiology of this hypotension was. He did not appear to have significant active bleeding after the surgery, though was fairly anemic postop. He was given IV fluid hydration and this hypotension did resolve. The patient tolerated the whole episode well. At this time he has recovered uneventfully otherwise. He is eating normally working well with physical therapy, no respiratory or cardiac compromise. He does notably have more significant gait instability than his baseline. At this point with his shoulder in immobilization and his gait instability he will need ongoing significant supervision and physical occupational therapy rehabilitation. FOLLOW-UP PLAN: He will be transferred at this time to long-term facility for ongoing physical therapy and rehabilitation He will follow up with Dr. Chu at [facility] in 10-14 days.
--- NOTE | 2018-12-14 14:20 | POSTOPPROG ---
Post Op Note Date of Operation: 12/08/18 Surgeon: Nolan Mendieta Anesthesia: Local (Specify) Pre-op Diagnosis: Hypertension Post-op Diagnosis: Same Indication: IV access for pressors Procedure: Right subclavian triple-lumen catheter placement Findings: Good position and flow Inf/Abcess present in the surg proc area at time of surgery?: No Depth: Deep Incisional (Fascial) EBL: Minimal Complications: None
--- NOTE | 2018-12-14 14:25 | PDGENHP ---
History & Physical Chief Complaint: Hypotension History of Present Illness: 67-year-old male with Down syndrome who has recently undergone surgery for a shoulder repair after a fall. He is in the ICU I was consulted for line placement because of his ongoing hypotension and need for pressors. Risks and options fully discussed and he and his POA are wished to proceed Pertinent Past, Social, Family History: Past history includes Down syndrome, GERD, hypothyroidism, seizure disorder, sleep apnea. Medications: Omeprazole, Synthroid, Lamictal, CPAP. Allergies carbamazepine. Review of systems difficult to obtain but negative for any major findings on a 10 point review. Social history he is a nonsmoker. Family history noncontributory Relevant Physical Exam: Cooperative 67-year-old male who is in no acute distress , afebrile. HEENT a Down's face ease, PERRLA, nonicteric. Neck supple nontender. Chest clear and symmetric breath sounds. Cor regular rhythm. Abdomen soft nontender. Extremities full range of motion full pulses except for his left shoulder which is in a splint. Psych alert oriented and cooperative Cardiorespiratory Assessment: Impression postoperative hypotension. Plan central line placement for monitoring and pressor access. Risks and options fully discussed and he wishes to proceed
== END 2018-12-11 15:26 | DRG 483 ==
LOC: OBSVTOIN 17:51 → F3N 18:47 → F2N 12-07 20:02 → F3N 12-10 21:23
PROVIDERS: ADMIT Internal Medicine; ATTEND Internal Medicine
PROC: 0RRK00Z Replacement of Left Shoulder Joint with Reverse Ball and Socket Synthetic Substitute, Open Approach (ICD-10-PCS; principal; 2018-12-06)
PROC: 02HV3DZ Insertion of Intraluminal Device into Superior Vena Cava, Percutaneous Approach (ICD-10-PCS; 2018-12-08)
DX: S42.202A Unspecified fracture of upper end of left humerus, initial encounter for closed fracture (principal); W01.0XXA Fall on same level from slipping, tripping and stumbling without subsequent striking against object, initial encounter; D62 Acute posthemorrhagic anemia; I95.81 Postprocedural hypotension; Q90.9 Down syndrome, unspecified; G47.33 Obstructive sleep apnea (adult) (pediatric); K21.9 Gastro-esophageal reflux disease without esophagitis; I27.20 Pulmonary hypertension, unspecified; G40.909 Epilepsy, unspecified, not intractable, without status epilepticus; Z99.81 Dependence on supplemental oxygen
CPT/HCPCS: 97116-GP; 97162-GP; 97166-GO; 97530-GO; 97530-GP; 97535-GO; A4565; C1713; J0171; J0690; J1100; J1650; J1885; J2270; J2370; J2405; J2704; J2795; J3010; P9041